=== PATIENT | female | born 1950 | race Caucasian/White ===

== ENCOUNTER → 2025-04-26 17:34 | Outpatient (REF) | payer MEDICARE, OTHER, SELFPAY | LOC: MRI 3T 17:34 | PROVIDERS: ATTENDING PHYSICIAN Radiology Radiation Oncology; FAMILY PHYSICIAN Family Medicine | DX: C34.11 Malignant neoplasm of upper lobe, right bronchus or lung (principal) | CPT/HCPCS: 70553; A9575 ==

== ENCOUNTER → 2025-05-10 13:45 | Outpatient (REF) | payer MEDICARE, OTHER, SELFPAY ==
[2025-05-10 15:15] LABS: Hematocrit 34.6 % (37.0-47.0); Hemoglobin 11.2 g/dL (12.0-16.0); Mean Corp Hgb Conc. 32.4 g/dL (33.0-37.0); Mean Corpuscular Volume 90.3 fL (81.0-99.0); Nucleated Red Blood Cells % 0 %; Platelet Count 141 10^3/uL (130-400); Red Cell Dist. Width 13.2 % (11.5-14.5)
[2025-05-10 16:11] LABS: ALT (SGPT) 19 U/L (0-35); AST (SGOT) 21 U/L (14-36); Albumin 3.9 g/dl (3.5-5.0); Alkaline Phosphatase 67 U/L (38-126); Blood Urea Nitrogen 16 mg/dl (7-17); Calcium 8.8 mg/dl (8.4-10.2); Carbon Dioxide 27 mmol/L (22-30); Chloride 100 mmol/L (98-107); Glucose 100 mg/dl (70-99); Magnesium 1.8 mg/dl (1.6-2.3); Potassium 4.6 mmol/L (3.5-5.1); Sodium 133 mmol/L (135-145); Total Protein 6.4 g/dl (6.3-8.2); eGFR > 60.00
== END ==
LOC: REG 13:45
PROVIDERS: ATTENDING PHYSICIAN Internal Medicine Hematology & Oncology; FAMILY PHYSICIAN Family Medicine
DX: C34.91 Malignant neoplasm of unspecified part of right bronchus or lung (principal); I42.9 Cardiomyopathy, unspecified; R53.81 Other malaise
CPT/HCPCS: 36415; 80053; 83735; 85025

== ENCOUNTER → 2025-05-21 13:55 | Outpatient (REF) | payer MEDICARE, OTHER, SELFPAY ==
[2025-05-21 15:06] LABS: Hematocrit 31.5 % (37.0-47.0); Hemoglobin 10.3 g/dL (12.0-16.0); Mean Corp Hgb Conc. 32.7 g/dL (33.0-37.0); Mean Corpuscular Volume 90.5 fL (81.0-99.0); Platelet Count 601 10^3/uL (130-400); Red Cell Dist. Width 14.2 % (11.5-14.5)
[2025-05-21 15:24] LABS: ALT (SGPT) 13 U/L (0-35); AST (SGOT) 22 U/L (14-36); Albumin 3.7 g/dl (3.5-5.0); Alkaline Phosphatase 67 U/L (38-126); Blood Urea Nitrogen 11 mg/dl (7-17); Calcium 9.5 mg/dl (8.4-10.2); Carbon Dioxide 27 mmol/L (22-30); Chloride 104 mmol/L (98-107); Glucose 89 mg/dl (70-99); Magnesium 2.1 mg/dl (1.6-2.3); Potassium 4.7 mmol/L (3.5-5.1); Sodium 136 mmol/L (135-145); Total Protein 6.5 g/dl (6.3-8.2); eGFR > 60.00
[2025-05-21 15:48] LABS: Absolute Neutrophils -Man Diff 3.8 10^3/uL (1.4-6.5); Normal RBC Morphology Yes; Platelets Checked Yes
[2025-05-21 15:49] LABS: Total Cells Counted 100
== END ==
LOC: REG 13:55
PROVIDERS: ATTENDING PHYSICIAN Internal Medicine Hematology & Oncology; FAMILY PHYSICIAN Family Medicine
DX: C34.91 Malignant neoplasm of unspecified part of right bronchus or lung (principal); I42.9 Cardiomyopathy, unspecified; R53.81 Other malaise
CPT/HCPCS: 36415; 80053; 83735; 85025

== ENCOUNTER → 2025-06-03 17:36 | Outpatient (REF) | payer MEDICARE, OTHER, SELFPAY ==
[2025-06-03 18:19] LABS: ALT (SGPT) 15 U/L (0-35); AST (SGOT) 21 U/L (14-36); Albumin 4.0 g/dl (3.5-5.0); Alkaline Phosphatase 69 U/L (38-126); Blood Urea Nitrogen 17 mg/dl (7-17); Calcium 9.0 mg/dl (8.4-10.2); Carbon Dioxide 29 mmol/L (22-30); Chloride 92 mmol/L (98-107); Glucose 120 mg/dl (70-99); Potassium 3.1 mmol/L (3.5-5.1); Sodium 129 mmol/L (135-145); Total Protein 6.6 g/dl (6.3-8.2); eGFR 52.40
[2025-06-03 18:58] LABS: Hematocrit 26.2 % (37.0-47.0); Hemoglobin 9.2 g/dL (12.0-16.0); Mean Corp Hgb Conc. 35.1 g/dL (33.0-37.0); Mean Corpuscular Volume 86.5 fL (81.0-99.0); Nucleated Red Blood Cells % 0 %; Red Cell Dist. Width 12.9 % (11.5-14.5)
[2025-06-03 20:12] LABS: Platelet Count 51 10^3/uL (130-400)
== END ==
LOC: REG 17:36
PROVIDERS: ATTENDING PHYSICIAN Internal Medicine Hematology & Oncology
DX: C34.91 Malignant neoplasm of unspecified part of right bronchus or lung (principal); I42.9 Cardiomyopathy, unspecified; R53.81 Other malaise
CPT/HCPCS: 36415; 80053; 85025

== ENCOUNTER → 2025-06-17 15:23 | Outpatient (REF) | payer MEDICARE, OTHER, SELFPAY ==
[2025-06-17 16:08] LABS: Hematocrit 26.8 % (37.0-47.0); Hemoglobin 8.7 g/dL (12.0-16.0); Mean Corp Hgb Conc. 32.5 g/dL (33.0-37.0); Mean Corpuscular Volume 92.4 fL (81.0-99.0); Nucleated Red Blood Cells % 0 %; Platelet Count 247 10^3/uL (130-400); Red Cell Dist. Width 17.0 % (11.5-14.5)
[2025-06-17 16:32] LABS: ALT (SGPT) 22 U/L (0-35); AST (SGOT) 28 U/L (14-36); Albumin 3.6 g/dl (3.5-5.0); Alkaline Phosphatase 79 U/L (38-126); Blood Urea Nitrogen 8 mg/dl (7-17); Calcium 8.9 mg/dl (8.4-10.2); Carbon Dioxide 30 mmol/L (22-30); Chloride 103 mmol/L (98-107); Glucose 105 mg/dl (70-99); Magnesium 1.5 mg/dl (1.6-2.3); Potassium 3.4 mmol/L (3.5-5.1); Sodium 138 mmol/L (135-145); Total Protein 6.2 g/dl (6.3-8.2); eGFR > 60.00
== END ==
LOC: REG 15:23
PROVIDERS: ATTENDING PHYSICIAN Internal Medicine Hematology & Oncology; REFERRING PHYSICIAN Radiology Radiation Oncology
DX: C34.91 Malignant neoplasm of unspecified part of right bronchus or lung (principal); I42.9 Cardiomyopathy, unspecified; R53.81 Other malaise; C34.11 Malignant neoplasm of upper lobe, right bronchus or lung
CPT/HCPCS: 36415; 80053; 83735; 85025

== ENCOUNTER → 2025-08-13 07:47 | Outpatient (REF) | payer MEDICARE, OTHER, SELFPAY | LOC: MRI 07:47 | PROVIDERS: ATTENDING PHYSICIAN Radiology Radiation Oncology; FAMILY PHYSICIAN Family Medicine | DX: C34.11 Malignant neoplasm of upper lobe, right bronchus or lung (principal) | CPT/HCPCS: 70553; A9575 ==

== ENCOUNTER 2025-08-28 12:53 | Outpatient (RCR) | payer MEDICARE, OTHER, SELFPAY ==
[2025-08-28 13:28] LABS: Hematocrit 28.2 % (37.0-47.0); Hemoglobin 9.1 g/dL (12.0-16.0); Mean Corp Hgb Conc. 32.3 g/dL (33.0-37.0); Mean Corpuscular Volume 99.3 fL (81.0-99.0); Platelet Count 200 10^3/uL (130-400); Red Cell Dist. Width 15.3 % (11.5-14.5)
[2025-08-28 15:35] LABS: ALT (SGPT) 14 U/L (0-35); AST (SGOT) 21 U/L (14-36); Albumin 3.2 g/dl (3.5-5.0); Alkaline Phosphatase 85 U/L (38-126); Blood Urea Nitrogen 11 mg/dl (7-17); Calcium 8.6 mg/dl (8.4-10.2); Carbon Dioxide 27 mmol/L (22-30); Chloride 104 mmol/L (98-107); Glucose 103 mg/dl (70-99); Potassium 4.3 mmol/L (3.5-5.1); Sodium 136 mmol/L (135-145); Total Protein 5.9 g/dl (6.3-8.2); eGFR > 60.00
== END 2025-08-28 23:59 | disposition home or self-care (01) ==
LOC: OID 12:53
PROVIDERS: ATTENDING PHYSICIAN Internal Medicine Hematology & Oncology; FAMILY PHYSICIAN Family Medicine
DX: G93.40 Encephalopathy, unspecified (principal); C34.11 Malignant neoplasm of upper lobe, right bronchus or lung; I42.9 Cardiomyopathy, unspecified; R53.81 Other malaise
CPT/HCPCS: 36415; 80053; 84443; 85025

== ENCOUNTER → 2025-09-02 13:25 | Outpatient (REF) | payer MEDICARE, OTHER, SELFPAY | LOC: RAD 13:25 | PROVIDERS: ATTENDING PHYSICIAN Nurse Practitioner Adult Health; FAMILY PHYSICIAN Family Medicine | DX: C34.11 Malignant neoplasm of upper lobe, right bronchus or lung (principal); I42.9 Cardiomyopathy, unspecified; R53.81 Other malaise | CPT/HCPCS: 71046 ==

== ENCOUNTER 2025-09-03 18:17 | Inpatient (IN) | payer MEDICARE, OTHER, SELFPAY ==
[2025-09-03] VITALS (10 sets, daily range): BP systolic 104–142; BP diastolic 62–86; BMI 24.3; BMI 25.2
--- NOTE | 2025-09-03 13:24 | ED.GENMED ---
History of Present Illness
<Roge Bearden MD - Last Filed: 09/03/25 13:25>
General
Chief Complaint: Breathing Problem
Time Seen by Provider: 09/03/25 12:55
History of Present Illness
History of Present Illness:
Patient presents to the emergency department with shortness of breath and cough. Symptoms have been worsening over the past few days. She notes to productive cough with green thick mucus. No fevers or chills. Today she was more short of breath
and her son brought her to the emergency department. She denies any chest pain. Denies any leg swelling.
Phy Exam
<Roge Bearden MD - Last Filed: 09/03/25 13:25>
Physical Exam
Physical Exam:
GENERAL APPEARANCE: In mild respiratory distress, pale appearing
EYES lids/conjunctiva normal
EARS/NOSE/THROAT Mucous membranes moist
HEAD/NECK normocephalic atraumatic, neck is supple.
RESPIRATORY frequent coughing, rhonchi on the right, mild tachypnea noted
CARDIAC tachycardia
ABDOMINAL Soft, ND/NT. No pulsatile masses on exam, rebound tenderness, Morlaes sign or pain over Mcburney's point.
MUSCLES/EXTREMITIES No abnormal range of motion, no swelling.
SKIN Warm, pink and dry. No rashes
NEUROLOGICAL Speech is clear and appropriate. Normal level of consciousness. 5/5 strength in all extremities.
PSYCH Normal mood and affect. Judgement/competence is appropriate
Scores
<Benoit Cool DO - Last Filed: 09/03/25 16:59>
Heart Failure Risk
Heart Failure Risk Score: Not Applicable
Sepsis
<Roge Bearden MD - Last Filed: 09/03/25 13:25>
Sepsis Screen
Sepsis Screen: Possible Sepsis
Date: 09/03/25
Time: 13:24
<Benoit Cool DO - Last Filed: 09/03/25 16:59>
Sepsis Screening
Sepsis Assessment: Sepsis Ruled Out
Sepsis Screen
Sepsis Screen: Sepsis Ruled Out
Date: 09/03/25
Time: 16:59
Course
<Roge Bearden MD - Last Filed: 09/03/25 13:25>
Orders/Labs/Results
Orders:
Orders
09/03/25 13:20
Electrocardiogram (*1) Urgent
Reason for Study: Shortness of Breath
CR Chest - 2 Views Urgent
Comment:
Reason For Exam: sob
09/03/25 13:21
EKG- Treatment ONCE
IV Insert/Care/Rem.- Treatment PRN
09/03/25 13:23
Basic Metabolic Panel Urgent
Complete Blood Count/With Diff Urgent
Lactic Acid Q4H
Comment: ON ICE, CANCEL 2ND ORDER IF FIRST LACTIC ACID LEVEL <2
Blood Culture Q20M
ROXANE Source: Blood/Venous
Specimen Description:
Comment: Urgent from separate sites. If patient screens positive for possible sepsis
Blood Culture Q20M
ROXANE Source: Blood/Venous
Specimen Description:
Comment: Urgent from separate sites. If patient screens positive for possible sepsis
09/03/25 13:27
COVID-19 Antigen Urgent
Source: Nasal Swab
D-Dimer Urgent
NT-proBNP Urgent
PTT Urgent
Prothrombin Time Urgent
Troponin I Urgent
Influenza A+B Rapid Molecular Urgent
ROXANE Source: Nasal Swab
Specimen Description:
09/03/25 13:52
CT Chest PE Study Urgent
Comment:
Reason For Exam: sob
09/03/25 16:15
Urinalysis Reflex To Culture Urgent
Date Specimen was Collected: 09/03/25
Time Specimen was Collected: 13:21
Urine Microscopic Reflex Cult Urgent
Urine Culture Urgent
ROXANE Source: U
Specimen Description:
Date Specimen was Collected: 09/03/25
Time Specimen was Collected: 13:21
09/03/25 16:56
Piperacillin/Tazo 3.375 Gram [Zosyn] 3.375 gram in 50 ml IV NOW
Vancomycin [Vancocin] 2,000 mg 0.9% Sodium Chloride 500 ml [Nss] 500 ml IV NOW
Abnormal Lab Results
09/03/25 09/03/25 09/03/25
13:23 13:27 16:15
RBC 3.30 L 10^6/uL
(4.20-5.40)
Hgb 10.5 L g/dL
(12.0-16.0)
Hct 32.1 L %
(37.0-47.0)
MCH 31.8 H pg
(27.0-31.0)
MCHC 32.7 L g/dL
(33.0-37.0)
RDW 14.6 H %
(11.5-14.5)
Abs Immat Gran (auto) 0.1 H 10^3/uL
(0-0.05)
Absolute Neuts (auto) 9.2 H 10^3/uL
(1.4-6.5)
Absolute Lymphs (auto) 0.5 L 10^3/uL
(1.2-3.4)
Absolute Monos (auto) 0.8 H 10^3/uL
(0.1-0.6)
Neutrophils % 86.3 H %
(42.2-75.2)
Lymphocytes % 4.3 L %
(20.5-51.1)
D-Dimer 1.87 H ug/mlFEU
(0.00-0.50)
Sodium 132 L mmol/L
(135-145)
Glucose 119 H mg/dl
(70-99)
Urine Urobilinogen 2+ A
(Neg - 1+)
Urine Bacteria (Reflex) Moderate A
(Negative)
Urine Albumin (Reflex) 2+ A
(Neg - Trace)
09/03/25 13:23
09/03/25 13:23
Vital Signs
Initial and Last Documented VS:
Initial Vital Signs
Temp Pulse Resp BP Pulse Ox
98.2 F 120 26 136/73 98
09/03/25 12:45 09/03/25 12:45 09/03/25 12:45 09/03/25 12:45 09/03/25 12:45
Last Documented Vital Signs
Temp Pulse Resp BP Pulse Ox
98.2 F 102 26 110/69 99
09/03/25 12:45 09/03/25 16:24 09/03/25 16:24 09/03/25 16:24 09/03/25 16:24
<Benoit Cool, DO - Last Filed: 09/03/25 16:59>
Orders/Labs/Results
Orders:
Orders
09/03/25 13:20
Electrocardiogram (*1) Urgent
Reason for Study: Shortness of Breath
CR Chest - 2 Views Urgent
Comment:
Reason For Exam: sob
09/03/25 13:21
EKG- Treatment ONCE
IV Insert/Care/Rem.- Treatment PRN
09/03/25 13:23
Basic Metabolic Panel Urgent
Complete Blood Count/With Diff Urgent
Lactic Acid Q4H
Comment: ON ICE, CANCEL 2ND ORDER IF FIRST LACTIC ACID LEVEL <2
Blood Culture Q20M
ROXANE Source: Blood/Venous
Specimen Description:
Comment: Urgent from separate sites. If patient screens positive for possible sepsis
Blood Culture Q20M
ROXANE Source: Blood/Venous
Specimen Description:
Comment: Urgent from separate sites. If patient screens positive for possible sepsis
09/03/25 13:27
COVID-19 Antigen Urgent
Source: Nasal Swab
D-Dimer Urgent
NT-proBNP Urgent
PTT Urgent
Prothrombin Time Urgent
Troponin I Urgent
Influenza A+B Rapid Molecular Urgent
ROXANE Source: Nasal Swab
Specimen Description:
09/03/25 13:52
CT Chest PE Study Urgent
Comment:
Reason For Exam: sob
09/03/25 16:15
Urinalysis Reflex To Culture Urgent
Date Specimen was Collected: 09/03/25
Time Specimen was Collected: 13:21
Urine Microscopic Reflex Cult Urgent
Urine Culture Urgent
ROXANE Source: U
Specimen Description:
Date Specimen was Collected: 09/03/25
Time Specimen was Collected: 13:21
09/03/25 16:56
Piperacillin/Tazo 3.375 Gram [Zosyn] 3.375 gram in 50 ml IV NOW
Vancomycin [Vancocin] 2,000 mg 0.9% Sodium Chloride 500 ml [Nss] 500 ml IV NOW
Abnormal Lab Results
09/03/25 09/03/25 09/03/25
13:23 13:27 16:15
RBC 3.30 L 10^6/uL
(4.20-5.40)
Hgb 10.5 L g/dL
(12.0-16.0)
Hct 32.1 L %
(37.0-47.0)
MCH 31.8 H pg
(27.0-31.0)
MCHC 32.7 L g/dL
(33.0-37.0)
RDW 14.6 H %
(11.5-14.5)
Abs Immat Gran (auto) 0.1 H 10^3/uL
(0-0.05)
Absolute Neuts (auto) 9.2 H 10^3/uL
(1.4-6.5)
Absolute Lymphs (auto) 0.5 L 10^3/uL
(1.2-3.4)
Absolute Monos (auto) 0.8 H 10^3/uL
(0.1-0.6)
Neutrophils % 86.3 H %
(42.2-75.2)
Lymphocytes % 4.3 L %
(20.5-51.1)
D-Dimer 1.87 H ug/mlFEU
(0.00-0.50)
Sodium 132 L mmol/L
(135-145)
Glucose 119 H mg/dl
(70-99)
Urine Urobilinogen 2+ A
(Neg - 1+)
Urine Bacteria (Reflex) Moderate A
(Negative)
Urine Albumin (Reflex) 2+ A
(Neg - Trace)
09/03/25 13:23
09/03/25 13:23
Vital Signs
Initial and Last Documented VS:
Initial Vital Signs
Temp Pulse Resp BP Pulse Ox
98.2 F 120 26 136/73 98
09/03/25 12:45 09/03/25 12:45 09/03/25 12:45 09/03/25 12:45 09/03/25 12:45
Last Documented Vital Signs
Temp Pulse Resp BP Pulse Ox
98.2 F 102 26 110/69 99
09/03/25 12:45 09/03/25 16:24 09/03/25 16:24 09/03/25 16:24 09/03/25 16:24
<Roge Bearden MD - Last Filed: 09/03/25 13:25>
*Pulse Oximetry
SaO2: 98
Oxygen Mode of Delivery: Room air
<Benoit Cool DO - Last Filed: 09/03/25 16:59>
*Pulse Oximetry
Patient hypoxic: yes
*Critical Care Note
Total Time (30-74mins, 75-104mins- exclusive of procedures): Not Applicable
<Benoit Cool DO - Last Filed: 09/03/25 16:59>
Update Note
Update Note:
5 PM care of patient was transitioned earlier pending CT pulmonary embolism rule out. CT negative for PE but does show evidence of multifocal pneumonia. Given the supplemental oxygen with her comorbidities, will start IV antibiotics and admit
ED Attending Note
<Roge Bearden MD - Last Filed: 09/03/25 13:25>
-
Portions of this chart may have been created with voice recognition software.� Occasional wrong word or��sound alike� substitutions may have occurred due to the inherent limitations of voice recognition software.
Discharge Plan
Departure
Patient Disposition: Admit
Date of Disposition: 09/03/25
Time of Disposition: 16:58
Admit to: Med/Surg
Presentation/result/management discussed w/ accepting MD/DO: Hospitalist
Discharge Problem:
Multifocal pneumonia
Referrals:
Tato Mera MD [Family Provider, Family Practice]
Interventions
Interventions:
*Risk Screen - Suicide Last Done: 09/03/25 12:45
*Neglect/Abuse Screening Last Done: 09/03/25 12:45
*ED COVID-19 Vaccine History Last Done: 09/03/25 12:45
*ED Influenza Vaccine History Last Done: 09/03/25 12:45
ED- Cardiac Assessment Last Done: 09/03/25 13:11
ED- Pulmonary Assessment Last Done: 09/03/25 13:11
Discharge Date and Time
Print Language: SLOVENIAN
[2025-09-03 13:35] LABS: Hematocrit 32.1 % (37.0-47.0); Hemoglobin 10.5 g/dL (12.0-16.0); Mean Corp Hgb Conc. 32.7 g/dL (33.0-37.0); Mean Corpuscular Volume 97.3 fL (81.0-99.0); Nucleated Red Blood Cells % 0 %; Platelet Count 305 10^3/uL (130-400); Red Cell Dist. Width 14.6 % (11.5-14.5)
[2025-09-03 13:44] LABS: INR 1.06; PT 14.1 Sec (11.4-14.6)
[2025-09-03 13:45] LABS: APTT 31.8 Sec (23.4-35.0)
[2025-09-03 13:48] LABS: D-Dimer 1.87 ug/mlFEU (0.00-0.50)
[2025-09-03 13:57] LABS: COVID-19 Antigen Negative (Negative)
[2025-09-03 14:58] LABS: Blood Urea Nitrogen 15 mg/dl (7-17); Calcium 9.2 mg/dl (8.4-10.2); Carbon Dioxide 25 mmol/L (22-30); Chloride 99 mmol/L (98-107); Estimated Creatinine Clearance 66 ml/min; Glucose 119 mg/dl (70-99); Sodium 132 mmol/L (135-145); eGFR > 60.00
[2025-09-03 15:00] LABS: Troponin I 0.022 ng/ml
[2025-09-03 16:45] LABS: Urine Character Clear (Clear)
[2025-09-03 16:54] LABS: Urine Red Blood Cell 0-2 /HPF (0-2); Urine White Cell 0-2 /HPF (0-5)
--- NOTE | 2025-09-03 16:59 | HPS.HSE ---
Family Physician
-
Family Physician: Tato Mera
Chief Complaint
-
increased shortness of breath
History of Present Illness
Patient is a 75-year-old female with past medical history significant for lung cancer, hypertension, hyperlipidemia, CHF, left bundle branch block, COPD, GERD and arthritis who presented to [facility] ED for evaluation of increased shortness of breath.
Patient and son at bedside assisted with HPI. Patient with increased shortness of breath and cough noticed starting approximately 4 days ago on Tuesday. Cough has been productive. Denies fever, chills, chest pain, nausea, vomting, diarrhea or
constipation.
Medical History
Past Medical History
Past Medical History: Reports Other
Additional Past Medical History:
lung cancer
hypertension
hyperlipidemia
CHF
hypothyroidism
left bundle branch block
COPD
GERD
arthritis
Past Surgical History: Reports Other
Additional Past Surgical History:
Hysterectomy
Whipple procedure
RCW port placement
Social History
Tobacco: Former Smoker
Alcohol: Occasional
Drug: None
Living: With Family
Family History
Family History: Not pertinent
Allergies / Home Medications
Allergies reflects when Allergies were last updated in [facility].
Home Medications with original date entered in [facility]
Allergy/Medication List:
Allergies
Allergy/AdvReac Type Severity Reaction Status Date / Time
atorvastatin (From Lipitor) Allergy Unknown Verified 09/03/25 17:24
erythromycin base Allergy Unknown Verified 09/03/25 17:24
ibandronate sodium (From Allergy Unknown Verified 09/03/25 17:24
Boniva)
metoclopramide (From Reglan) Allergy Rash Verified 09/03/25 17:24
gabapentin AdvReac weakness Verified 09/03/25 17:24
Home Medications
aspirin 81 mg tablet 81 mg PO DAILY 09/03/25
calcium 500 mg tablet 1,000 mg PO DAILY 09/03/25
calcium 650 mg-vitamin D3 12.5 mcg-vitamin K 40 mcg chewable tablet (Viactiv) 1 tab PO DAILY 09/03/25
carvedilol 6.25 mg tablet 6.25 mg PO BID 09/03/25
cholecalciferol (vitamin D3) 50 mcg (2,000 unit) capsule (Vitamin D3) 100 mcg PO DAILY 09/03/25
conjugated estrogens 0.3 mg tablet (Premarin) 0.3 mg PO DAILY 09/03/25
esomeprazole magnesium 40 mg capsule,delayed release (Nexium) 40 mg PO BID 09/03/25
famotidine 40 mg tablet 40 mg PO HS 09/03/25
fexofenadine 180 mg tablet 180 mg PO HS 09/03/25
furosemide 20 mg tablet 20 mg PO DIRECTED 09/03/25
levothyroxine 75 mcg tablet 75 mcg PO DAILY 09/03/25
lisinopril 5 mg tablet 5 mg PO DAILY 09/03/25
lorazepam 0.5 mg tablet 0.5 mg PO HS 09/03/25
montelukast 10 mg tablet 10 mg PO HS 09/03/25
multivitamin 2 tab PO DAILY 09/03/25
paroxetine HCl 25 mg tablet,extended release 24 hr (Paxil CR) 25 mg PO DAILY 09/03/25
rosuvastatin 20 mg tablet (Crestor) 20 mg PO HS 09/03/25
spironolactone 25 mg tablet 12.5 mg PO DAILY 09/03/25
zinc 1 tab PO HS 09/03/25
Review of Systems
-
History Source: Patient and Family
Constitutional: Denies Fever or Chills
EENT: Denies Sore Throat
Respiratory: Reports Cough and Trouble Breathing (shortness of breath); Denies Hemoptysis
Cardiac: Denies Chest Pain, Diaphoresis, Palpitations or Syncope
Abdomen/GI: Denies Abdominal Pain, Nausea, Vomiting or Diarrhea
: Denies Dysuria, Frequency or Urgency
Musculoskeletal: Denies Joint Pain
Skin: Denies Rash
Neurological: Denies Dizzy, Headache, Weakness or Numbness
Physical Exam
Vital Signs
Vital Signs
Temp Pulse Resp BP Pulse Ox
98.2 F 102 26 110/69 99
09/03/25 12:45 09/03/25 16:24 09/03/25 16:24 09/03/25 16:24 09/03/25 16:24
Physical Exam
General: Well Developed, Well Nourished and Conversant
HEENT: NormoCephalic, PERRLA, Nose Appears Normal and Ears Appear Normal
Respiratory: Rhonchi, Crackles, Decreased Breath Sounds and Other (oxygen in place ); No Wheezes or Rales
Cardiac: Regular Rhythm; No Murmur or Peripheral Edema
GI: Soft, Non Tender, Non Distended and Normal Bowel Sounds
Musculoskeletal: No Clubbing, No Cyanosis and Other (RCW port)
Skin: Warm and IV/Catheter Site
Neuro: Awake and AO x 3
Psych: Calm
Laboratory Results
-
09/03/25 13:23
09/03/25 13:23
Laboratory Results
PT 14.1 Sec (11.4-14.6) 09/03/25 13:27
INR 1.06 09/03/25 13:27
APTT 31.8 Sec (23.4-35.0) 09/03/25 13:27
Lactic Acid Cancelled 09/03/25 17:30
Total Bilirubin Cancelled 09/03/25 13:23
AST Cancelled 09/03/25 13:23
ALT Cancelled 09/03/25 13:23
Alkaline Phosphatase Cancelled 09/03/25 13:23
Troponin I 0.022 ng/ml 09/03/25 13:27
Data Reviewed
-
Diagnostic Radiology: Report Reviewed by me (CXR: Mild bibasilar linear opacities. Please see separate concurrent CTA Chest report.)
CT Scan: Report Reviewed by me (Chest: o CT evidence for an acute pulmonary thromboembolism. Bilateral patchy pulmonary parenchymal opacities, some with a nodular configuration. Pulmonary nodules detailed above. Other opacities appear less nodular,
greatest in the left lower lobe. Multifocal pneumonia is the primary consideration)
Medical Tests (Nuc Med, Echo, EKG etc): Report Reviewed by me (EKG: SINUS TACHYCARDIA LEFT BUNDLE BRANCH BLOCK)
Lab Data: Labs Reviewed by me (hgb 10.5, hct 32.1, neut 86.3, d-dimer 1.87, Na 132, pBNP 6370)
Impression/Plan
-
IMPRESSION/PLAN:
#dyspnea and orthopnea 2/2 PNA vs. lung cancer vs. CHF
hgb 10.5, hct 32.1, neut 86.3, d-dimer 1.87, Na 132, pBNP 6370
Influenza: negative
Covid: negative
Procal: pending
EKG: SINUS TACHYCARDIA
LEFT BUNDLE BRANCH BLOCK
CXR: Mild bibasilar linear opacities. Please see separate concurrent CTA Chest report.
Chest CT: No CT evidence for an acute pulmonary thromboembolism.
Bilateral patchy pulmonary parenchymal opacities, some with a nodular configuration. Pulmonary nodules detailed above. Other opacities appear less nodular, greatest in the left lower lobe.
Multifocal pneumonia is the primary consideration, but underlying metastases would be difficult to exclude. Recommend follow-up imaging after treatment.
Mild linear scarring in the anterior inferior right upper lobe at the site of the patient's treated lung cancer.
Mild bilateral bronchitis.
Mild centrilobular emphysema.
- Admit to med/surg
- Consult Pulmonary
- IV Zosyn q6
- IV Decadron 4mg q12h
- DuoNeb qid and PRN
- Sputum culture
- supportive care
#CHF
- Consult Cardiology
- check ECHO
- daily weights
- I & Os
- hold PO Lasix
- continue spironolactone
- IV Lasix 20mg daily
#lung cancer
known to [facility]
completed chemo and radiation May 2025
- follow up out patient
#hypertension
- continue carvedilol and lisinopril
#hyperlipidemia
- continue rosuvastatin
#hypothyroidism
- continue levothyroxine
#COPD
- continue fexofenadine and montelukast
#GERD
- continue famotidine
#depression/anxiety
- continue paroxetine and lorazepam
#arthritis
Code status: DNR
DVT prophylaxis: Lovenox sq
--- NOTE | 2025-09-03 17:04 | W.PN.UPDATE ---
Addendum entered and electronically signed by Too Daley MD 09/03/25 17:44:
ADDENDUM:
NEG Covid. NEG Flu A & B
IV Decadron 4mg q12h
DuoNeb qid and PRN
Sputum CX
Original Note:
Update Note
Progress Note Update
This note serves as an addendum to the H&P by [employer] Nataly Oneal
HPI�
75F BiB Son
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
seen at ER
- BiB son due to worsening SoB
- pw shortness of breath and cough worsening over the past few days
+ productive cough with green thick mucus.
- No fevers or chills.
- denies any chest pain.
- denies any leg swelling.
VS: POX hi 90s on RA. No fever
Relevant VS
Temp Pulse Resp BP Pulse Ox
98.2 F 102 26 110/69 99
09/03/25 12:45 09/03/25 16:24 09/03/25 16:24 09/03/25 16:24 09/03/25 16:24
PE
Gen: looks sick, alert
HEENT: wearing NC O2
Neck:supple
Lungs: poor AE both marlow , rhonchi,but no exp wheeze
Cor: RRR
Abdomen:�soft benign
[employer]:alert , slow cognitive speed but correct answer
MS:no edema
Psych: anxious
Relevant Data�
09/03/25 09/03/25
13:23 13:27
WBC 10.7
Hgb 10.5 L
Plt Count 305 D
D-Dimer 1.87 H
Sodium 132 L
Creatinine 0.7
eGFR > 60.00
Lactic Acid 1.3
09/03/25
13:27
Troponin I 0.022
[id number]-Iqjiecpppll Pept 6370
CXR:
Mild bibasilar linear opacities. Please see separate concurrent CTA Chest report.
CTC PE protocol
- No CT evidence for an acute pulmonary thromboembolism.
- Bilateral patchy pulmonary parenchymal opacities, some with a nodular configuration.
- Pulmonary nodules detailed above. Other opacities appear less nodular, greatest in the left lower lobe.
- Multifocal pneumonia is the primary consideration, but underlying metastases would be difficult to exclude. Recommend follow-up imaging after treatment.
- Mild linear scarring in the anterior inferior right upper lobe at the site of the patient's treated lung cancer.
- Mild bilateral bronchitis.
- Mild centrilobular emphysema.
NO PRIOR hospitalist admission: Known to [facility]
ASSESSMENT & PLAN
Pending Rx reconciliation - on [facility]
Ramey and orthopnea- No Moris edema
Productive cough with green sputum ( afebrile , Nl WCC) : acute bronchitis COPD, Former smoker , not on home O2
Elevated p BNP ( 6370) with nl eGFR: suspect acute on chr CHF type unknown
Abnormal multinodal parenchymal opacities CTC : DDX: multifocal PNA, Mets. No evidence of PE
- check PCT till then c/w empiric IX Zosyn
- check MRSA screen
- Empiric IV lasix 20 mg now IV 20mg daily x daily
- O2 support to keep POx > 93 %
- ECHO in AM
- daily Wt and IOS
- Consult: Pul & CBC card
Small cell Lung CA ( s/p chemo and XRT )
- Known to Dr Hidalgo @ [facility]
pHTN
DVT Px: LMWH
DNR per advanced directives - confirmed by Son
IP TLM
[2025-09-03] MEDS: ZOSYN 50 IV ×2 (17:42→23:41)
[2025-09-03] MEDS: LASIX 20 MG IV (18:11)
[2025-09-03] MEDS: VANCOCIN 540 MG IV (18:12)
[2025-09-03 18:19] LABS: Procalcitonin 0.31 ng/ml (0.0-0.25)
[2025-09-03] MEDS: DUONEB 3 ML INH (20:35)
[2025-09-03] MEDS: CLARITIN 10 MG PO (21:31)
[2025-09-03] MEDS: COREG 6.25 MG PO (21:31)
[2025-09-03] MEDS: DECADRON 4 MG IV (21:31)
[2025-09-03] MEDS: SINGULAIR 10 MG PO (21:31)
[2025-09-03] MEDS: PROTONIX 40 MG PO (21:31)
[2025-09-03] MEDS: CRESTOR 20 MG PO (21:31)
[2025-09-03] MEDS: PEPCID 40 MG PO (21:31)
[2025-09-03] MEDS: ATIVAN 0.5 MG PO (21:31)
[2025-09-04] VITALS (7 sets, daily range): BP systolic 97–109; BP diastolic 42–63; BMI 25.2
[2025-09-04] MEDS: TYLENOL 650 MG PO (00:13)
[2025-09-04] MEDS: ZOSYN 50 IV ×2 (05:01→12:58)
[2025-09-04] MEDS: SYNTHROID PO (06:09)
--- NOTE | 2025-09-04 06:18 | PTCARENOTE ---
Pt seeming to be more drowsy throughout shift, sweaty and clammy. Temp 97.9, 116/58, HR 83, O2 97 on 2 L. Pt opens eyes per verbal and tactile stimuli then closes immed and goes back to sleep. Unable to take 0600 Synthroid at this time. AJAY Lockett
made aware.
[2025-09-04 06:57] LABS: Hematocrit 27.0 % (37.0-47.0); Hemoglobin 9.0 g/dL (12.0-16.0); Mean Corp Hgb Conc. 33.3 g/dL (33.0-37.0); Mean Corpuscular Volume 94.1 fL (81.0-99.0); Platelet Count 223 10^3/uL (130-400); Red Cell Dist. Width 14.4 % (11.5-14.5)
[2025-09-04 07:06] LABS: Blood Urea Nitrogen 15 mg/dl (7-17); Calcium 8.9 mg/dl (8.4-10.2); Carbon Dioxide 24 mmol/L (22-30); Chloride 101 mmol/L (98-107); Estimated Creatinine Clearance 56 ml/min; Glucose 155 mg/dl (70-99); HDL Cholesterol 53 mg/dl; Potassium 3.9 mmol/L (3.5-5.1); Sodium 132 mmol/L (135-145); Very Low Density Lipoprotein 12 mg/dl (0-30); eGFR > 60.00
--- NOTE | 2025-09-04 07:14 | W.PN.HOSP.TC ---
Today's Communication/Plan
-
zosyn switching to doxycycline 100 mg/ bid
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
PT, OT consult
pulmonary toileting
ativan prn
hold the antihypertensive if the systolic 100mg less
TSH ordered
Assessment / Plan
Assessment / Plan
75-year-old female with past history significant for lung cancer, hypertension, hyperlipidemia, congestive heart failure, left bundle branch block, chronic obstructive pulmonary disease, gastroesophageal reflux disease and arthritis presented with
increased shortness of breath. When she had which recommend with Management Concern for Increased Shortness of Breath, Cough from Tuesday which was productive,former smoker occasional drinker living with family presented with shortness of breath
secondary to pulmonary nodules/lung cancer/CHF:
Vitals: ID [id number], temp max 98.9, pulse rate 114---71, blood pressure 109/63, O2 sat 99 with 2 L nasal cannula.
WBC 6.4, hemoglobin 10.5--9 low,
Coagulation: D-dimer 1.87 high,
Chemistry: Sodium 132, glucose 119--155, lactic acid 1.3 normal, COVID-negative.
MRSA screening pending, urine culture pending.
# Dyspnea and orthopnea secondary to pulmonary nodules/lung cancer/CHF:
D-dimer 1.87 high, sodium 132 low, proBNP 6370,
COVID-negative, flu negative.
IV Zosyn 6 hourly stopped.
IV Decadron 4 mg 4 hourly started
Sputum culture, supportive care, I/O,
Consult sr vice president, scrap metal processing worker
IV Lasix 20 mg daily, continue spironolactone
Health per oral Lasix
Monitor daily weight
EKG 09/03: QT interval 545 ms sinus tachycardia, left bundle branch block
On 09/03/2025 chest x-ray finding:
Mild bibasilar linear opacities are again seen. The cardiomediastinal silhouettes are stable. Right chest port is seen with tip in the SVC. There is no pneumothorax, significant pleural effusion or mediastinal shift.
On 09/03/25 CT chest PE study:
No CT evidence for an acute pulmonary thromboembolism.
Bilateral patchy pulmonary parenchymal opacities, some with a nodular configuration. Pulmonary nodules detailed above. Other opacities appear less nodular, greatest in the left lower lobe. Multifocal pneumonia is the primary consideration, but
underlying metastases would be difficult to exclude. Recommend follow-up imaging after treatment.
Mild linear scarring in the anterior inferior right upper lobe at the site of the patient's treated lung cancer.
Mild bilateral bronchitis, Mild centrilobular emphysema.
# Lung cancer:
Completed her chemotherapy and radiation on May 2025 at [facility].
#hypertension
- continue carvedilol and lisinopril
#hyperlipidemia
- continue rosuvastatin
#hypothyroidism
- continue levothyroxine
#COPD
- continue fexofenadine and montelukast
#GERD
- continue famotidine
#depression/anxiety
- continue paroxetine and lorazepam
#arthritis
# PT, OT consult
plan:
Code status: DNR
DVT prophylaxis: Lovenox sq
Diet: Normal
Anticipated Discharge: 24 - 48 hours
Subjective/Interval History
-
Date of Service: September 04, 2025
Overnight the patient received Xanax and felt this sleepy with loud snoring, her son Mayank present at the time of discussion. And the patient feels better when comparing from the admission.
She denies fever, chills, dysuria, chest pain, palpitation, shortness of breath.
Objective Data
-
Labs:
Laboratory Results
09/04/25
05:35
WBC 6.4
Hgb 9.0 L
Hct 27.0 L
Plt Count 223 D
Sodium 132 L
Potassium 3.9
Chloride 101
Carbon Dioxide 24
BUN 15
Creatinine 0.8
Glucose 155 H
Calcium 8.9
Vital Signs:
Vital Signs
Temp Pulse Resp BP Pulse Ox
97.6 F 83 20 109/63 99
09/04/25 03:00 09/04/25 03:00 09/04/25 03:00 09/04/25 03:00 09/04/25 03:00
I&O
09/03/25 09/04/25 09/05/25
06:59 06:59 06:59
Output Total 375 / 375
Balance -375 / -375
Review of Systems
-
History Source: Patient
All other systems: Reviewed and negative
Physical Exam
-
HEENT: Oxygen (2 L) and Other
Respiratory: Crackles
Cardiac: Regular Rhythm and S1/S2
GI: Soft, Nontender and Nondistended
Genito-urinary: No Costovertebral Tender
Musculoskeletal: No Clubbing
Skin: Warm
Neuro: AO x 3, No Motor Deficits and Sedated
Hematologic / Lymphatic: No Lymphadenopathy
Psych: Calm
[2025-09-04 07:15] LABS: LDL Cholesterol, Calculated 62 mg/dl
[2025-09-04] MEDS: DUONEB 3 ML INH ×4 (07:23→19:47)
--- NOTE | 2025-09-04 09:05 | CON.CAR ---
Addendum entered and electronically signed by Rafi Jones MD 09/04/25 14:13:
I reviewed and agree with the note by AJAY and it accurately reflects our care.
I saw and evaluated the patient, and I provided the substantive portion of the medical decision making. My assessment and plan is below:
75-year-old female with HFrEF, LBBB, COPD, chronic bronchitis, and lung cancer on immunotherapy who presents with shortness of breath and productive cough. Cardiology is consulted due to concern for CHF exacerbation. History is limited due to
patient's lethargy. She denies any current chest pain or shortness of breath while she is lying in the bed.
Physical exam: RRR, systolic murmur, rhonchorous lung sounds, and no lower extremity edema
Chest CT: No PE, multifocal pneumonia, cannot exclude underlying metastases, mild bronchitis, mild emphysema, no pleural effusions
Labs notable for troponin 0.022, proBNP 6370, creatinine 0.8, Pro-Shakeel 0.31
ECG: Sinus tachycardia, LBBB
Echo July 2025 ([facility]): LVEF 20%, moderate MR, PASP 55 mmHg
Echo 09/04/2025: LVEF 15-20%, severe MR, PASP 42 mmHg
Shortness of breath: Likely multifactorial due to pneumonia, COPD exacerbation, and acute on chronic HFrEF. Difficult volume exam but PASP is lower than reported in July and we have several other explanations for her dyspnea. Home Lasix 20 mg
daily has been ordered by primary team. Okay to continue this dose. If dyspnea is not improving despite treatment for pneumonia and COPD exacerbation, we could consider putting her back on IV Lasix.
HFrEF: Diuresis as above. Continue lisinopril, and spironolactone. Carvedilol on hold for low BP. Resume as tolerated.
Cardiology will sign off. Please call with any additional questions or concerns.
Original Note:
Consultation
Consultation Request
Date/Time Consultation Requested: 09/03/252006
Date/Time Consultation Performed: 09/04/25906
Requesting Provider: Gladys [place] ADMINISTRATIVE PROGRAM SPECIALIST
Performing Provider: Marli MOSS for Dr. Jones
Reason for Consultation: CHF
Medical History
-
Chief Complaint: SOB
History of Present Illness:
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
night. There was also productive cough with green sputum. This got much worse yesterday and so son (at bedside) brought her in. She is seen on CT scan to have suspected PNA, bronchitis, and emphysema. Procal is elevated. She is diaphoretic to
assessment, but no fever. She is being treated with steroids and antibiotics. We are consulted for suspected component of CHF, as BNP is elevated. She has lost 22 lbs this year in setting of cancer treatment.
Past Medical History
Past Medical History: Cancer, CHF, COPD, HTN and Hypercholesterolemia
Social History
Living: With Family
Family History
Family History: Reviewed & Not Pertinent
Allergies / Home Medications
Allergy/AdvReac Type Severity Reaction Status Date / Time
atorvastatin (From Lipitor) Allergy Unknown Verified 09/03/25 17:24
erythromycin base Allergy Unknown Verified 09/03/25 17:24
ibandronate sodium (From Allergy Unknown Verified 09/03/25 17:24
Boniva)
metoclopramide (From Reglan) Allergy Rash Verified 09/03/25 17:24
gabapentin AdvReac weakness Verified 09/03/25 17:24
�Medication �Instructions �Recorded �Confirmed �Type
aspirin 81 mg tablet 81 mg PO DAILY Blood Pressure 09/03/25 09/03/25 History
calcium 500 mg tablet 1,000 mg PO DAILY Supplement 09/03/25 09/03/25 History
calcium 650 mg-vitamin D3 12.5 1 tab PO DAILY Supplement 09/03/25 09/03/25 History
mcg-vitamin K 40 mcg chewable
tablet (Viactiv)
carvedilol 6.25 mg tablet 6.25 mg PO BID Blood Pressure 09/03/25 09/03/25 History
cholecalciferol (vitamin D3) 50 100 mcg PO DAILY Supplement 09/03/25 09/03/25 History
mcg (2,000 unit) capsule (Vitamin
D3)
conjugated estrogens 0.3 mg tablet 0.3 mg PO DAILY HORMONE 09/03/25 09/03/25 History
(Premarin)
esomeprazole magnesium 40 mg 40 mg PO BID Gastrointestinal Issue 09/03/25 09/03/25 History
capsule,delayed release (Nexium)
famotidine 40 mg tablet 40 mg PO HS Gastrointestinal Issue 09/03/25 09/03/25 History
fexofenadine 180 mg tablet 180 mg PO HS Allergies 09/03/25 09/03/25 History
furosemide 20 mg tablet 20 mg PO DIRECTED Fluid 09/03/25 09/03/25 History
Retention/Swelling
levothyroxine 75 mcg tablet 75 mcg PO DAILY Thyroid 09/03/25 09/03/25 History
lisinopril 5 mg tablet 5 mg PO DAILY Blood Pressure 09/03/25 09/03/25 History
lorazepam 0.5 mg tablet 0.5 mg PO HS Mental Health/Anxiety 09/03/25 09/03/25 History
montelukast 10 mg tablet 10 mg PO HS Allergies 09/03/25 09/03/25 History
multivitamin 2 tab PO DAILY Supplement 09/03/25 09/03/25 History
paroxetine HCl 25 mg 25 mg PO DAILY Mental 09/03/25 09/03/25 History
tablet,extended release 24 hr Health/Anxiety
(Paxil CR)
rosuvastatin 20 mg tablet (Crestor) 20 mg PO HS High Cholesterol 09/03/25 09/03/25 History
spironolactone 25 mg tablet 12.5 mg PO DAILY Fluid 09/03/25 09/03/25 History
Retention/Swelling
zinc 1 tab PO HS Supplement 09/03/25 09/03/25 History
Review of Systems
-
History Source: Patient
All other systems: Negative unless noted
Constitutional: Weight Loss
Respiratory: Cough and Trouble Breathing
Physical Exam
Vital Signs
Temp Pulse Resp BP Pulse Ox
97.6 F 71 18 109/63 99
09/04/25 03:00 09/04/25 07:24 09/04/25 07:24 09/04/25 03:00 09/04/25 07:24
Lab Results
09/04/25 05:35
09/04/25 05:35
Troponin I 0.022 ng/ml 09/03/25 13:27
Nbv-R-Kjhdcnigrzu Pept 6370 pg/ml 09/03/25 13:27
Physical Exam
General: Well Developed, Well Nourished and No Apparent Distress
HEENT: Normocephalic and Anicteric
Respiratory: Other (coarse lung sounds t/o)
Cardiac: Regular Rhythm
Musculoskeletal: Edema (trace pedal)
Skin: Warm and Dry
Neuro: AO x 3
Psych: Calm
Impression / Plan
-
SOB:
-Chest CT 09/03/25: No CT evidence for an acute pulmonary thromboembolism. Bilateral patchy pulmonary parenchymal opacities, some with a nodular configuration. Pulmonary nodules detailed above. Other opacities appear less nodular, greatest in the
left lower lobe. Multifocal pneumonia is the primary consideration, but underlying metastases would be difficult to exclude. Recommend follow-up imaging after treatment. Mild linear scarring in the anterior inferior right upper lobe at the site of
the patient's treated lung cancer. Mild bilateral bronchitis. Mild centrilobular emphysema.
-pulmonary consulted
-on ABX, steroids, duonebs
-patient also with lung cancer as noted
-Elevated BNP and could have mild component of uvalq-rv-jtlxdgw HF (type unknown), but does not appear obviously volume overloaded to assessment, so I do not think will need to be on IV diuresis much longer- OP doing lasix 20 mg EOD for LE edema
per family. She is also on low dose spironolactone. Echo is ordered by primary team.
HTN:
-stable
-would continue usual home medications
LBBB:
-chronic and stable
Lung cancer:
-follows with oncology
Data Reviewed
-
EKG: Tracing Personally Visualized and interpreted (ST with LBBB 113 B[address]
CT Scan: Report Reviewed by me (as noted)
Medical Tests (Nuc Med, Echo etc): Other (echo ordered)
Labs: Labs Reviewed by me
[2025-09-04] MEDS: DECADRON 4 MG IV ×2 (09:21→20:56)
[2025-09-04] MEDS: PROTONIX 40 MG PO ×2 (09:22→20:56)
[2025-09-04] MEDS: PAXIL 20 MG PO (09:22)
[2025-09-04] MEDS: PREMARIN 0.3 MG PO (09:22)
[2025-09-04] MEDS: LOW STRENGTH ASPIRIN 81 MG PO (09:22)
[2025-09-04] MEDS: ALDACTONE 12.5 MG PO (09:26)
[2025-09-04] MEDS: LASIX 20 MG PO (09:26)
[2025-09-04] MEDS: ZESTRIL 5 MG PO (09:26)
[2025-09-04] MEDS: COREG 6.25 MG PO (09:26)
--- NOTE | 2025-09-04 09:29 | CON.PUL ---
Consultation
Consultation Request
Date/Time Consultation Requested: 09/03/25
Date/Time Consultation Performed: 09/03/25
Performing Provider: Jose
Reason for Consultation: SOB
Medical History
-
History of Present Illness:
Patient is a 75-year-old female with previous history of lung cancer, hypertension, CHF, COPD presenting to ER for evaluation of increased shortness of breath, cough started approximately 4 days prior to admission. Patient had chest x-ray
demonstrating mild bilateral patchy opacities, confirmed on CT imaging with associated interstitial prominence and mosaicism. proBNP elevated on admission 6370, with mildly elevated procalcitonin. She is admitted for possible pneumonia and
congestive heart failure exacerbation.
Past Medical History
Past Medical History: Other (see list below)
Social History
Tobacco: Non-smoker
Alcohol: None
Drug: None
Family History
Family History: Unable to Obtain
Allergies / Home Medications
Allergies
Allergy/AdvReac Type Severity Reaction Status Date / Time
atorvastatin (From Lipitor) Allergy Unknown Verified 09/03/25 17:24
erythromycin base Allergy Unknown Verified 09/03/25 17:24
ibandronate sodium (From Allergy Unknown Verified 09/03/25 17:24
Boniva)
metoclopramide (From Reglan) Allergy Rash Verified 09/03/25 17:24
gabapentin AdvReac weakness Verified 09/03/25 17:24
Home Medications
�Medication �Instructions �Recorded �Confirmed �Last Taken �Type
aspirin 81 mg tablet 81 mg PO DAILY Blood Pressure 09/03/25 09/03/25 09/02/25 History
calcium 500 mg tablet 1,000 mg PO DAILY Supplement 09/03/25 09/03/25 09/02/25 History
calcium 650 mg-vitamin D3 12.5 1 tab PO DAILY Supplement 09/03/25 09/03/25 09/02/25 History
mcg-vitamin K 40 mcg chewable
tablet (Viactiv)
carvedilol 6.25 mg tablet 6.25 mg PO BID Blood Pressure 09/03/25 09/03/25 09/02/25 History
cholecalciferol (vitamin D3) 50 100 mcg PO DAILY Supplement 09/03/25 09/03/25 09/02/25 History
mcg (2,000 unit) capsule (Vitamin
D3)
conjugated estrogens 0.3 mg tablet 0.3 mg PO DAILY HORMONE 09/03/25 09/03/25 09/02/25 History
(Premarin)
esomeprazole magnesium 40 mg 40 mg PO BID Gastrointestinal Issue 09/03/25 09/03/25 09/02/25 History
capsule,delayed release (Nexium)
famotidine 40 mg tablet 40 mg PO HS Gastrointestinal Issue 09/03/25 09/03/25 09/02/25 History
fexofenadine 180 mg tablet 180 mg PO HS Allergies 09/03/25 09/03/25 09/02/25 History
furosemide 20 mg tablet 20 mg PO DIRECTED Fluid 09/03/25 09/03/25 09/02/25 History
Retention/Swelling
levothyroxine 75 mcg tablet 75 mcg PO DAILY Thyroid 09/03/25 09/03/25 09/02/25 History
lisinopril 5 mg tablet 5 mg PO DAILY Blood Pressure 09/03/25 09/03/25 09/02/25 History
lorazepam 0.5 mg tablet 0.5 mg PO HS Mental Health/Anxiety 09/03/25 09/03/25 09/02/25 History
montelukast 10 mg tablet 10 mg PO HS Allergies 09/03/25 09/03/25 09/02/25 History
multivitamin 2 tab PO DAILY Supplement 09/03/25 09/03/25 09/02/25 History
paroxetine HCl 25 mg 25 mg PO DAILY Mental 09/03/25 09/03/25 09/02/25 History
tablet,extended release 24 hr Health/Anxiety
(Paxil CR)
rosuvastatin 20 mg tablet (Crestor) 20 mg PO HS High Cholesterol 09/03/25 09/03/25 09/02/25 History
spironolactone 25 mg tablet 12.5 mg PO DAILY Fluid 09/03/25 09/03/25 09/02/25 History
Retention/Swelling
zinc 1 tab PO HS Supplement 09/03/25 09/03/25 09/02/25 History
Review of Systems
-
Unable to Obtain full review of systems at this time due to: Acuity
Vitals / Labs / Diagnostic Testing
Vital Signs
Temp Pulse Resp BP Pulse Ox
97.0 F 71 18 109/63 99
09/04/25 09:07 09/04/25 07:24 09/04/25 07:24 09/04/25 03:00 09/04/25 07:24
Lab Data
09/04/25 05:35
09/04/25 05:35
Laboratory Results
09/03/25
13:27
PT 14.1
INR 1.06
APTT 31.8
Microbiology
09/03/25 13:27 Nasal Swab Influenza Types A & B (MELINDA) - Final
Negative for Influenza A & B, NAAT
Negative results must be combined with clinical observations
and patient history.
Nucleic Acid Amplification test (NAAT)performed on the
[employer] NOW platform.
Diagnostic Testing:
Physical Exam
-
HEENT: Normocephalic, Anicteric and Moist Mucous Membranes
Cardiovascular: S1/S2, Regular Rhythm and Peripheral Edema
Respiratory: Wheeze, Rales and Non-Labored Respirations
GI: Soft, Non Distended and Non Tender
Neurology: Other (lethargic minimally arousable)
Skin: Warm and Dry
General: Comfortable and Other (overweight, lethargic)
Assessment
-
Patient is a 75-year-old female with previous history of lung cancer, hypertension, CHF, COPD presenting to ER for evaluation of increased shortness of breath, cough started approximately 4 days prior to admission. Patient had chest x-ray
demonstrating mild bilateral patchy opacities, confirmed on CT imaging with associated interstitial prominence and mosaicism. proBNP elevated on admission 6370, with mildly elevated procalcitonin. She is admitted for possible pneumonia and
congestive heart failure exacerbation.
Heart failure exacerbation, elevated proBNP 6370
Rule out pneumonia, Pro-Shakeel mildly elevated
Progressive shortness of breath with cough
Abnormal CT scan-w/ opacities, interstitial prominence, mosaicism
Conditions present prior to admission
Lung cancer
hypertension
hyperlipidemia
CHF
hypothyroidism
left bundle branch block
COPD/emphysema
GERD
arthritis
Hysterectomy
Whipple procedure
RCW port placement
Plan
Currently saturating 99% on 2L, does not have history of use at home
Home O2 evaluation eventually
Prior history of lung disease is noted including lung cancer, COPD/emphysema
Records not at , she follows for care elsewhere -- obtain records
She is unable to report history given lethargy
Will obtain ABG, suspect ENMA, r/o hypercarbia
Suspect patient has CHF exacerbation, with possible PNA r/o
CXR/CT obtained indicating opacities, interstitial prominence, mosaicism
She is placed on IV steroids, abx and lasix
FU cultures
Speech eval to be considered
Aspiration risk
No prior ECHO for review, obtain new study
Cards eval pending
Will need outpatient pulmonary evaluation PFTs and 6MWT--unsure if she has established somewhere
We will follow
Diagnostic Data
Chest X-Ray: 09/03/25- Mild bibasilar linear opacities. Please see separate concurrent CTA Chest report.
CT Scan: CT Chest 09/03/25- No CT evidence for an acute pulmonary thromboembolism. Bilateral patchy pulmonary parenchymal opacities, some with a nodular configuration. Pulmonary nodules detailed above. Other opacities appear less nodular, greatest
in the left lower lobe. Multifocal pneumonia is the primary consideration, but underlying metastases would be difficult to exclude. Recommend follow-up imaging after treatment. Mild linear scarring in the anterior inferior right upper lobe at the
site of the patient's treated lung cancer. Mild bilateral bronchitis.
Mild centrilobular emphysema.
PET/CT 08/12/25- Near-complete interval resolution of previously seen neoplasm in the inferior aspect of the right upper lobe with residual minimally FDG avid small bandlike opacity in this region, likely representing post-treatment inflammatory
scarring. Recommend continued attention on follow-up exams.
Several scattered small patchy right lung opacities with minimal visualized FDG avidity (although likely below PET sensitivity), new from prior outside PET/CT 04/11/2025 and most likely represent infectious/inflammatory foci, less likely
residual/recurrent neoplasm but not entirely excluded. Recommend continued attention on follow-up exams, such as a noncontrast CT chest in 2-3 months.Echo:
PFT's:
Reports and relevant images were personally reviewed.
Total time spent on this consultation __55__ minutes which includes review of history, physical exam, medications, laboratory data, personal review of imaging, extensive review of outpatient records, discussion with care team and respiratory therapy.
--- NOTE | 2025-09-04 12:18 | CARDSERVDEF ---
Echocardiogram with Definity completed after protocol screening completed. Allergies verified.
Patent IV site: _Right arm median antecubital_site clear___
IV site flushed with 0.9% NaCl pre and post administration.
Diluted bolus method utilized to enhance visualization of ventricular holland.
Total volume given: __3__ mL
Patient tolerated all procedures well without complications.
[2025-09-04 14:55] LABS: B.E. -1.3 mmol/L; HCO3 21.8 mmol/L (21-28); O2 Saturation % 97.2 % (94-98); PCO2 30 mmHg (32-35); PO2 73 mmHg (83-108)
[2025-09-04] MEDS: LOVENOX 40 MG SC (17:43)
[2025-09-04] MEDS: SYMBICORT 80/4.5 MCG INHALER 2 PUFF INH (19:47)
--- NOTE | 2025-09-04 19:56 | RESPNOTE ---
Attempted to place patient on CPAP for the night. Patient refused.
[2025-09-04] MEDS: VIBRAMYCIN 100 MG PO (20:57)
[2025-09-04 21:02] LABS: TSH 0.22 uIU/ml (0.47-4.68)
[2025-09-04] MEDS: CLARITIN 10 MG PO (23:07)
[2025-09-04] MEDS: PEPCID 20 MG PO (23:07)
[2025-09-04] MEDS: SINGULAIR 10 MG PO (23:07)
[2025-09-04] MEDS: CRESTOR 20 MG PO (23:07)
[2025-09-05 03:00] VITALS: BP 116/59
[2025-09-05] MEDS: SYNTHROID 75 MCG PO (05:38)
[2025-09-05 06:00] VITALS: BMI 25.2
[2025-09-05 07:00] VITALS: BP 113/65
[2025-09-05] MEDS: DUONEB 3 ML INH ×2 (07:12→11:07)
[2025-09-05] MEDS: SYMBICORT 80/4.5 MCG INHALER 2 PUFF INH (07:13)
--- NOTE | 2025-09-05 07:15 | W.PN.HOSP.TC ---
Today's Communication/Plan
-
Outpatient follow-up with the PCP in regards to her TSH level 0.22 low, graphic arts technician within a week of discharge.
DOXYCYCLINE` 100 mg twice daily, cefdinir 300 mg twice daily CONTINUE FOR 5 more days
ORAL STEROIDS NORMAL tapering dosage.
discuss regards her home discharge medication with graphic arts technician.
Assessment / Plan
Assessment / Plan
75-year-old female with past history significant for lung cancer, hypertension, hyperlipidemia, congestive heart failure, left bundle branch block, chronic obstructive pulmonary disease, gastroesophageal reflux disease and arthritis presented with
increased shortness of breath. When she had which recommend with Management Concern for Increased Shortness of Breath, Cough from Tuesday which was productive,former smoker occasional drinker living with family presented with shortness of breath
secondary to pulmonary nodules/lung cancer/CHF:
Vitals: MD 71, temp max 98.9, pulse rate 114---71, blood pressure 109/63, O2 sat 99 with 2 L nasal cannula.
WBC 6.4---, hemoglobin 10.5--9--pending for today
Coagulation: D-dimer 1.87 high,
Chemistry: Pending
MRSA screening, COVID negative,
Sputum culture prelim reports--usual respiratory nichole
Urine culture final report--mixed nichole present probably due to contamination and requested to repeat culture if clinically relevant.
ABG: pH 7.47, pCO2 30, pO2 73, HCO3 21.8-- respiratory alkalosis with partial compensated=== with h/o copd acute respiratory alkalosis.
proBNP elevation, mild procalcitonin elevation.
On 09/04 echo impression:
1. Dilated left ventricle with severely reduced systolic function. LVEF 20-25%.
2. Severe functional mitral valve regurgitation.
3. Mild tricuspid regurgitation. PASP 42 mmHg.
4. Compared to prior echo report from 07/11/2025 at [facility], LVEF was 20% with moderate MR and PASP 55 mmHg.

# Dyspnea and orthopnea secondary to pulmonary nodules/lung cancer/CHF:
D-dimer 1.87 high, sodium 132 low, proBNP 6370,
COVID-negative, flu negative.
IV Zosyn 6 hourly stopped.
IV Decadron 4 mg 4 hourly started planning to switch to oral medication.
Sputum culture, supportive care, I/O,
Lasix 20 mg daily, continue spironolactone
Health per oral Lasix
Monitor daily weight
Started on doxycycline 100 mg 12 hourly by given the history of COPD with CT scan finding of nodular configuration, parenchymal opacity suspicious of pneumonia, procalcitonin elevation currently on day 2,
Continue the antibiotic while on the discharge and follow-up with the PCP.
EKG 09/03: QT interval 545 ms sinus tachycardia, left bundle branch block
On 09/03/2025 chest x-ray finding:
Mild bibasilar linear opacities are again seen. The cardiomediastinal silhouettes are stable. Right chest port is seen with tip in the SVC. There is no pneumothorax, significant pleural effusion or mediastinal shift.
On 09/03/25 CT chest PE study:
No CT evidence for an acute pulmonary thromboembolism.
Bilateral patchy pulmonary parenchymal opacities, some with a nodular configuration. Pulmonary nodules detailed above. Other opacities appear less nodular, greatest in the left lower lobe. Multifocal pneumonia is the primary consideration, but
underlying metastases would be difficult to exclude. Recommend follow-up imaging after treatment.
Mild linear scarring in the anterior inferior right upper lobe at the site of the patient's treated lung cancer.
Mild bilateral bronchitis, Mild centrilobular emphysema.
# Mortuary Operations Manager consulted and recommended to follow Lasix 20 mg daily home dosing, continue diuresis includes lisinopril and spironolactone. Currently carvedilol on hold for low BP, will resume as tolerated.
# Farm Machinery Erector recommended speech evaluation for the aspiration risk. And she will need in future outpatient pulmonary evaluation includes PFTs, 6-minute walking test. She does not have records at [facility]
# Lung cancer:
Completed her chemotherapy and radiation on May 2025 at [facility].
#hypertension
- continue carvedilol and lisinopril
#hyperlipidemia
- continue rosuvastatin
#hypothyroidism
- continue levothyroxine
#COPD
- continue fexofenadine and montelukast
#GERD
- continue famotidine
#depression/anxiety
- continue paroxetine and lorazepam
#arthritis
# PT, OT consult
Code status: DNR
DVT prophylaxis: Lovenox sq
Diet: Normal
Anticipated Discharge: Today
Subjective/Interval History
-
Date of Service: September 05, 2025
Overnight patient feels better comparing from yesterday.
At morning while on pre- round saw the patient after she received nebulizer and she denied shortness of breath, fever, chills, dizziness, chest pain. She is on room air.
Objective Data
-
Labs:
Laboratory Results
09/05/25
06:00
WBC Pending
Hgb Pending
Hct Pending
Plt Count Pending
Sodium Pending
Potassium Pending
Chloride Pending
Carbon Dioxide Pending
BUN Pending
Creatinine Pending
Glucose Pending
Calcium Pending
Total Bilirubin Pending
AST Pending
ALT Pending
Alkaline Phosphatase Pending
Vital Signs:
Vital Signs
Temp Pulse Resp BP Pulse Ox
97.6 F 87 16 116/59 96
09/05/25 03:00 09/05/25 03:00 09/05/25 03:00 09/05/25 03:00 09/05/25 03:00
I&O
09/04/25 09/05/25 09/06/25
06:59 06:59 06:59
Intake Total 240 / 240
Output Total 375 / 375 300 / 300
Balance -375 / -375 -60 / -60
Review of Systems
-
History Source: Patient
All other systems: Reviewed and negative
Physical Exam
-
Respiratory: Wheezes (Bilateral mild wheeze)
Cardiac: Regular Rhythm and S1/S2
GI: Soft, Nontender and Nondistended
Genito-urinary: No Costovertebral Tender
Musculoskeletal: No Clubbing and No Edema
Skin: Warm
Neuro: AO x 3
Hematologic / Lymphatic: No Lymphadenopathy
Psych: Calm
[2025-09-05] MEDS: ALDACTONE 12.5 MG PO (09:00)
[2025-09-05] MEDS: DECADRON 4 MG IV (09:00)
[2025-09-05] MEDS: LOW STRENGTH ASPIRIN 81 MG PO (09:00)
[2025-09-05] MEDS: PREMARIN 0.3 MG PO (09:00)
[2025-09-05] MEDS: VIBRAMYCIN 100 MG PO (09:00)
[2025-09-05] MEDS: PROTONIX 40 MG PO (09:00)
[2025-09-05] MEDS: PAXIL 20 MG PO (09:01)
[2025-09-05] MEDS: LASIX 20 MG PO (09:01)
[2025-09-05] MEDS: ZESTRIL 2.5 MG PO (09:05)
[2025-09-05 10:04] LABS: Hematocrit 24.5 % (37.0-47.0); Hemoglobin 8.2 g/dL (12.0-16.0); Mean Corp Hgb Conc. 33.5 g/dL (33.0-37.0); Mean Corpuscular Volume 93.2 fL (81.0-99.0); Platelet Count 252 10^3/uL (130-400); Red Cell Dist. Width 14.4 % (11.5-14.5)
[2025-09-05 10:10] LABS: ALT (SGPT) 28 U/L (0-35); AST (SGOT) 45 U/L (14-36); Albumin 3.0 g/dl (3.5-5.0); Alkaline Phosphatase 72 U/L (38-126); Blood Urea Nitrogen 17 mg/dl (7-17); Calcium 8.7 mg/dl (8.4-10.2); Carbon Dioxide 25 mmol/L (22-30); Chloride 101 mmol/L (98-107); Estimated Creatinine Clearance 56 ml/min; Glucose 191 mg/dl (70-99); Potassium 3.7 mmol/L (3.5-5.1); Sodium 132 mmol/L (135-145); Total Protein 5.7 g/dl (6.3-8.2); eGFR > 60.00
[2025-09-05 11:00] VITALS: BP 111/56
--- NOTE | 2025-09-05 12:14 | W.PN.PUL3 ---
Today's Communication / Plan
-
Diuresis per cardiology
Defer GDMT to cardiology
Recommend sodium + fluid restricted diet
Discharged home on prednisone taper, starting at 50 mg daily, reducing by 10 mg every fourth day until off
Complete course of antibiotics upon discharge with Doxy + cefdinir
Discharged home on Symbicort 80 mcg, 2 puffs twice daily
If possible, prescribed nebulizer for home use with DuoNebs (for prn usage)
Aspiration precautions
Patient being prepared for discharge home today. No additional recommendations at this time. Pulmonary service will now sign off. Outpatient office follow-up will be arranged. Please reconsult if there are any additional questions/concerns, or
if patient's respiratory status deteriorates.
Assessment
-
Patient is a 75-year-old female with previous history of lung cancer, hypertension, CHF, COPD presenting to ER for evaluation of increased shortness of breath, cough started approximately 4 days prior to admission. Patient had chest x-ray
demonstrating mild bilateral patchy opacities, confirmed on CT imaging with associated interstitial prominence and mosaicism. proBNP elevated on admission 6370, with mildly elevated procalcitonin. She is admitted for possible pneumonia and
congestive heart failure exacerbation.
Heart failure exacerbation, elevated proBNP 6370
Rule out pneumonia, Pro-Shakeel mildly elevated
Progressive shortness of breath with cough
Abnormal CT scan-w/ opacities, interstitial prominence, mosaicism
Conditions present prior to admission
Lung cancer
hypertension
hyperlipidemia
CHF
hypothyroidism
left bundle branch block
COPD/emphysema
GERD
arthritis
Hysterectomy
Whipple procedure
RCW port placement
Plan
Currently saturating 96% on room air after needing 2L yesterday; does not have history of O2 use at home
Home O2 evaluation eventually
Prior history of lung disease is noted including lung cancer, COPD/emphysema
Records not at , she follows for care elsewhere -- obtain records
Yesterday she was lethargic however she is much better today and feels much improved.
Blood gas yesterday showed respiratory alkalosis
Suspect patient has CHF exacerbation, with possible PNA r/o
CXR/CT obtained indicating opacities, interstitial prominence, mosaicism
She was placed on IV steroids, abx and lasix
FU cultures (NGTD)
Speech eval to be considered
Aspiration risk
Echo obtained yesterday showing severely reduced LVEF at 20-25% with severe functional mitral valve regurgitation with PASP elevated at 42 mmHg
Cardiology on board and recs appreciated she should follow-up with cardiology as an outpatient as well
Defer GDMT to cardiology
Will need outpatient pulmonary evaluation PFTs and 6MWT--unsure if she has established somewhere
Patient being prepared for discharge home today. Recommend to complete course of antibiotics in addition to prednisone taper starting at 50 mg, reducing by 10 mg every fourth day until off. She should be given a nebulizer machine for at home as
needed use and would discharge home on Symbicort 80 mcg, 2 puffs twice daily.
No additional recommendations at this time. Pulmonary service will now sign off. Thank you for allowing us to be involved in the care of this patient. Please reconsult if there are any additional questions/concerns, or if patient's respiratory
status deteriorates.
Diagnostic Data
Chest X-Ray: 09/03/25- Mild bibasilar linear opacities. Please see separate concurrent CTA Chest report.
CT Scan: CT Chest 09/03/25- No CT evidence for an acute pulmonary thromboembolism. Bilateral patchy pulmonary parenchymal opacities, some with a nodular configuration. Pulmonary nodules detailed above. Other opacities appear less nodular, greatest
in the left lower lobe. Multifocal pneumonia is the primary consideration, but underlying metastases would be difficult to exclude. Recommend follow-up imaging after treatment. Mild linear scarring in the anterior inferior right upper lobe at the
site of the patient's treated lung cancer. Mild bilateral bronchitis.
Mild centrilobular emphysema.
PET/CT 08/12/25- Near-complete interval resolution of previously seen neoplasm in the inferior aspect of the right upper lobe with residual minimally FDG avid small bandlike opacity in this region, likely representing post-treatment inflammatory
scarring. Recommend continued attention on follow-up exams.
Several scattered small patchy right lung opacities with minimal visualized FDG avidity (although likely below PET sensitivity), new from prior outside PET/CT 04/11/2025 and most likely represent infectious/inflammatory foci, less likely
residual/recurrent neoplasm but not entirely excluded. Recommend continued attention on follow-up exams, such as a noncontrast CT chest in 2-3 months.Echo:
PFT's:
Reports and relevant images were personally reviewed.
Total time spent today was 37 minutes for this encounter. Time includes reviewing laboratory test/imaging results, reviewing pertinent medical records, obtaining and reviewing medical history, performing an appropriate exam, ordering medications,
tests and procedures. Time also includes documentation of this encounter, coordinating patient care and communicating with other healthcare professionals. Total time does not include separately billed tests performed on this date of service.
Subjective Data
-
Date of Service:
Date of Service: September 05, 2025
Chief Complaint: Pulmonary Follow Up
Subjective:
Patient seen today at bedside. No acute events reported overnight. Afebrile. Being planned for discharge home today.
Review of Systems
General: Other (Negative unless mentioned above)
Objective Data
Data Reviewed
Vital Signs / I&O / Oxygen:
Vital Signs
Temp Pulse Resp BP Pulse Ox
97.6 F 90 16 113/65 95
09/05/25 07:00 09/05/25 11:08 09/05/25 11:08 09/05/25 07:00 09/05/25 07:15
Intake and Output
09/04/25 09/05/25 09/06/25
06:59 06:59 06:59
Intake Total 240 / 240
Output Total 375 / 375 300 / 300
Balance -375 / -375 -60 / -60
SaO2 95
Nasal Cannula flow liters per 2
minute
Physical Exam
General: Respiratory Distress (n), Comfortable and Chills (n)
HEENT: Normocephalic and Anicteric
Cardiovascular: S1-S2 and Peripheral Edema (n)
Respiratory: Wheeze (bilaterally), Crackles (n), Rhonchi (n) and Non-Labored Respirations
GI: Soft, Non Distended, Non Tender and Normal Bowel Sounds
Neurology: AO x 3 and Tremors (n)
Skin: Warm, Dry, Cyanosis (n) and Jaundice (n)
Labs/Micro/Reports
Lab Data
09/05/25 09:30
09/05/25 09:30
Laboratory Results
09/04/25
14:46
pH 7.47 H
pCO2 30 L
pO2 73 L
HCO3 21.8
O2 Delivery Level
Microbiology
09/04/25 09:11 Sputum Respiratory Culture - Preliminary
Usual Respiratory Luciana
09/04/25 09:11 Sputum Gram Stain - Preliminary
09/03/25 18:26 Nose MRSA Screen - Final
No Methicillin Resistant Staphylococcus aureus isolated.
09/03/25 13:23 Blood/Venous Blood Culture - Preliminary
No Growth in 24 hours- Final report to follow
09/03/25 13:23 Blood/Venous Blood Culture - Preliminary
No Growth in 24 hours- Final report to follow
09/03/25 16:15 Urine Urine Culture - Final
09/03/25 13:27 Nasal Swab Influenza Types A & B (MELINDA) - Final
Negative for Influenza A & B, NAAT
Negative results must be combined with clinical observations
and patient history.
Nucleic Acid Amplification test (NAAT)performed on the
[employer] platform.
[2025-09-05 12:18] LABS: Free T3 2.33 pg/ml (2.77-5.27)
[2025-09-05 12:59] VITALS: O2SAT 92
--- NOTE | 2025-09-05 13:19 | PTOTSP ---
Speech Therapy Evaluation
Pt seen for bedside swallow assessment. Pt at an elevated risk for aspiration given PMH of lung cancer with chemotherapy (completed May 2025) and GERD compounded by suspected community acquired pneumonia, congestive heart failure exacerbation,
and multifactorial acute hypoxemic respiratory insufficiency due to COPD exacerbation. With PO trials at bedside, pt had intermittent throat clearing with thin liquids. Pt with intermittent cough, which pt reports is a baseline cough (given COPD).
Cannot rule out silent aspiration at bedside.�
Recommend:�
1. IDDSI 7 regular solids and IDDSI 0 thin liquids
2. Medication as best�tolerated
3. Swallow Strategies: upright to 90 degrees, single small sips/bites, slow rate, intermittent cough swallow, upright for 30 minutes post PO, oral care 3x daily
4. ASSISTANT COMMUNITY DIRECTOR to follow briefly to ensure diet tolerance and to monitor any concerning chest imaging/respiratory status change. Can consider VSE in outpatient if there are concerns for aspiration.
[2025-09-05 13:27] VITALS: BP 111/53; BP 133/75; PULSE 121; PULSE 98; O2SAT 96
--- NOTE | 2025-09-05 13:51 | W.DCSUMMARY ---
Documented by User: Nakul Odom MD, Resident 09/05/25 15:11
Discharge Summary
Discharge Data
Date of Admission: 09/03/25
Date of Discharge: 09/05/25
-
Pending Results: No
Hospital Course
Discharging Physician : Dr Robinson Oseguera MD
Lei Bettencourt MD
Disposition : Home
Primary care physician : Dr Tato Mera
Principal Discharge diagnosis :
#Dyspnea, orthopnea secondary to pulmonary lung nodules/lung cancer/congestive heart failure
# Chronic obstructive pulmonary disease.
Chronic Discharge diagnosis :
# Congestive heart failure-continued with input and output, spironolactone, IV Lasix 20 mg daily and consulted referral nurse, ordered echo which had a normal finding when comparing with the last echo.
# Lung cancer--completed chemo, radiation on May 2025 at [facility], however she does not have any symptoms of nausea, vomiting, hemoptysis while on this admission.
# Primary hypertension continued with carvedilol. However held her lisinopril but given her cough symptoms as a side effect of this medication, and requested to follow-up with her PCP to restart while on discharge.
# Gastroesophageal reflux stenosis continued with famotidine.
# Depression managed with paroxetine, lorazepam.
# Arthritis managed with analgesics..
Hospital Course :
On 09/04 75-year-old female with a past medical history significant for lung cancer, hypertension, hyperlipidemia, congestive heart failure, left bundle branch block, chronic obstructive pulmonary disease, gastroesophageal reflux disease, arthritis
presented to [facility] ER with concern for increased shortness of breath, her son at bedside assisted her for the history obtaining. According to the son patient started to have increased shortness of breath, cough 4 days before the admission which was
productive cough however denied fever, chills, chest pain, nausea, vomiting, diarrhea, constipation at the time of admission. Basic workup includes influenza, COVID, blood culture and negative however her procalcitonin level were elevated. She was
started on Zosyn however discontinued by given her COPD started with doxycycline 100 mg twice a day. Managed chronic obstructive pulmonary disease path IV Decadron 4 mg 12 hourly, DuoNeb 4 times a day along with sputum culture and supportive care
which include pulmonary toileting and ledger clerk consulted by given the chest x-ray finding, chest CT scan with bilateral patchy pulmonary parenchymal opacities, pulmonary nodules. Cosmetic Sales Assistant consulted given her history of congestive heart
failure and they recommended to continue Lasix home dosage of 20 mg. She had a requirement of 2 L of nasal oxygen at the time of stay for a day however while on discharge she was comfortable with the room air with saturation of 98%. QT
prolongation with 545msec. Relief Man recommended to follow up in an outpt clinic within few weeks after the discharge for 6 mins walk test. Patient was stable at the time of the discharge. SHe was in Code status: DNR, DVT prophylaxis: Lovenox sq
, Diet: Normal
IMPORTANT:
If your symptoms worsen when you get home, go to the Emergency Room if you cannot reach a doctor, or call 911
Important imaging findings :
On 09/02/25 chest X ray:
Linear densities within both lungs, similar to recent PET/CT scan, and likely linear atelectasis and/or scarring.
Findings suggesting bronchitis bilaterally in the perihilar regions and within the left lower lobe.
Cardiomegaly. No convincing evidence for pulmonary edema pattern. No significant pleural effusion is evident.
On 09/03/[address] Scan PE study:
No CT evidence for an acute pulmonary thromboembolism.
Bilateral patchy pulmonary parenchymal opacities, some with a nodular configuration. Pulmonary nodules detailed above. Other opacities appear less nodular, greatest in the left lower lobe. Multifocal pneumonia is the primary consideration, but
underlying metastases would be difficult to exclude. Recommend follow-up imaging after treatment.
Mild linear scarring in the anterior inferior right upper lobe at the site of the patient's treated lung cancer.
Mild bilateral bronchitis.
Mild centrilobular emphysema.
On 09/04 echo impression:
1. Dilated left ventricle with severely reduced systolic function. LVEF 20-25%.
2. Severe functional mitral valve regurgitation.
3. Mild tricuspid regurgitation. PASP 42 mmHg.
4. Compared to prior echo report from 07/11/[address] [facility], LVEF was 20% with moderate MR and PASP 55 mmHg.
Procedure findings : none
Discharge Plan
-
Patient Disposition: Home (Routine Discharge)
Discharge Diagnosis/Procedures: Acute hypoxemic respiratory failure
COPD exacerbation
Acute on chronic HFrEF
Community-acquired pneumonia
Prolonged QTc interval
Condition: Fair
Diet: Low Cholesterol, Low Sodium and Restrict fluids to 64 oz
Activity: As tolerated
Driving Restrictions: Not until seen by your Dr
Bathing Restrictions: None
Blood Work: Follow-up with family doctor for BMP, CBC, magnesium level, phosphorus level
Others Tests: Follow-up with ledger clerk for repeat PFTs and 6-minute walk test
Other Services: VN and PT
Instructions: *PCP/Other Cosmetic Sales Assistant Heart Failure Instructions
Referrals:
Jam Raymond MD [Active, Cardiology] - in less than 1 week
Referral Note: If cardiology referral needed
Luba Garcia DO [Active, Pulmonary Medicine] - in one to two weeks
Tato Mera MD [Family Provider, [facility]]
Additional Discharge Medication Instructions: Continue cefdinir 300 mg every 12 hours and doxycycline 100 mg every 12 hours for 5 more days after discharge for pneumonia
Continue prednisone taper as directed (50 mg with decrease by 10 mg every fourth day)
Start Symbicort 2 puffs twice daily for maintenance therapy for COPD
Reduce lisinopril from 5 mg to 2.5 mg daily
Stop taking carvedilol until seen by family doctor or referral nurse
Use DuoNebs as needed for shortness of breath or wheezing
Prescriptions:
New
budesonide-formoterol [Symbicort] 80-4.5 mcg/actuation Hfa Aerosol Inhaler
2 puff inhalation R BID 30 Days Qty: 10.2 0RF
doxycycline hyclate 100 mg Capsule
100 mg PO Q12 5 Days Qty: 10 0RF
lisinopril 2.5 mg Tablet
2.5 mg PO DAILY 30 Days Qty: 30 0RF
cefdinir 300 mg capsule
300 mg PO Q12H 5 Days Qty: 10 0RF
ipratropium-albuterol 0.5 mg-3 mg(2.5 mg base)/3 mL Solution For Nebulization
3 ml inhalation R Q4HPRN PRN (Reason: shortness of breath/wheezing) Qty: 90 0RF
(DME) nebulizers [AeroEClinke XL Nebulizer] Misc
See Rx Instructions .Route Qty: 1 0RF
Rx Instructions:
As directed
(DME) nebulizer accessories Kit
See Rx Instructions .Route Qty: 1 0RF
Rx Instructions:
As directed
prednisone 10 mg tablet
See Taper PO DIRECTED Qty: 60 0RF
Taper: Prednisone DC Starting at 50 mg daily
50 mg Daily for 3 Days and 0 Hour
40 mg Daily for 3 Days and 0 Hour
30 mg Daily for 3 Days and 0 Hour
20 mg Daily for 3 Days and 0 Hour
10 mg Daily for 3 Days and 0 Hour
Rx Instructions:
50 mg daily for 3d; 40 mg daily for 3d; 30 mg daily for 3d; 20 mg daily for 3d; 10 mg daily for 3d
Continued
multivitamin Tablet
2 tab PO DAILY
famotidine 40 mg Tablet
40 mg PO HS
calcium 500 mg Tablet
1,000 mg PO DAILY
fexofenadine 180 mg Tablet
180 mg PO HS
spironolactone 25 mg Tablet
12.5 mg PO DAILY
levothyroxine 75 mcg Tablet
75 mcg PO DAILY
lorazepam 0.5 mg Tablet
0.5 mg PO HS
esomeprazole magnesium [Nexium] 40 mg Capsule,Delayed Release(Dr/Ec)
40 mg PO BID
montelukast 10 mg Tablet
10 mg PO HS
aspirin 81 mg Tablet
81 mg PO DAILY
conjugated estrogens [Premarin] 0.3 mg Tablet
0.3 mg PO DAILY
paroxetine HCl [Paxil CR] 25 mg Tablet Extended Release 24 Hr
25 mg PO DAILY
zinc Tablet,Chewable
1 tab PO HS
rosuvastatin [Crestor] 20 mg Tablet
20 mg PO HS
cholecalciferol (vitamin D3) [Vitamin D3] 50 mcg (2,000 unit) Capsule
100 mcg PO DAILY
calcium-vitamin D3-vitamin K [Viactiv] 650 mg-12.5 mcg-40 mcg Tablet,Chewable
1 tab PO DAILY
Changed
furosemide 20 mg Tablet
20 mg PO DAILY 30 Days Qty: 30 0RF
Held
carvedilol 6.25 mg Tablet
6.25 mg PO BID
Hold Instructions: Until you see your family doctor or referral nurse
Discontinued
lisinopril 5 mg Tablet
5 mg PO DAILY
Discharge Orders:
Discharge Patient (As Directed); Ordered 09/05/25
Ordered By: Nakul Odom
Discharge Date and Time
Discharge Date/Time: 09/05/25 14:34
Print Language: FINNISH

Documented by User: Hunter Oseguera DO 09/06/25 11:16
Discharge Summary
Discharge Data
Date of Admission: 09/03/25
Date of Discharge: 11/28/25
Total time spent discharging patient (in min): 33
Discharge Plan
-
Patient Disposition: Home (Routine Discharge)
Discharge Diagnosis/Procedures: Acute hypoxemic respiratory failure
COPD exacerbation
Acute on chronic HFrEF
Community-acquired pneumonia
Prolonged QTc interval
Condition: Fair
Diet: Low Cholesterol, Low Sodium and Restrict fluids to 64 oz
Activity: As tolerated
Driving Restrictions: Not until seen by your Dr
Bathing Restrictions: None
Blood Work: Follow-up with family doctor for BMP, CBC, magnesium level, phosphorus level
Others Tests: Follow-up with ledger clerk for repeat PFTs and 6-minute walk test
Other Services: VN and PT
Instructions: *PCP/Other Cosmetic Sales Assistant Heart Failure Instructions
Referrals:
Jam Raymond MD [Active, Cardiology] - in less than 1 week
Referral Note: If cardiology referral needed
Luba Garcia DO [Active, Pulmonary Medicine] - in one to two weeks
Tato Mera MD [Family Provider, Family Practice]
Additional Discharge Medication Instructions: Continue cefdinir 300 mg every 12 hours and doxycycline 100 mg every 12 hours for 5 more days after discharge for pneumonia
Continue prednisone taper as directed (50 mg with decrease by 10 mg every fourth day)
Start Symbicort 2 puffs twice daily for maintenance therapy for COPD
Reduce lisinopril from 5 mg to 2.5 mg daily
Stop taking carvedilol until seen by family doctor or referral nurse
Use DuoNebs as needed for shortness of breath or wheezing
Prescriptions:
New
budesonide-formoterol [Symbicort] 80-4.5 mcg/actuation Hfa Aerosol Inhaler
2 puff inhalation R BID 30 Days Qty: 10.2 0RF
doxycycline hyclate 100 mg Capsule
100 mg PO Q12 5 Days Qty: 10 0RF
lisinopril 2.5 mg Tablet
2.5 mg PO DAILY 30 Days Qty: 30 0RF
cefdinir 300 mg capsule
300 mg PO Q12H 5 Days Qty: 10 0RF
ipratropium-albuterol 0.5 mg-3 mg(2.5 mg base)/3 mL Solution For Nebulization
3 ml inhalation R Q4HPRN PRN (Reason: shortness of breath/wheezing) Qty: 90 0RF
(DME) nebulizers [AeroEclipse XL Nebulizer] Misc
See Rx Instructions .Route Qty: 1 0RF
Rx Instructions:
As directed
(DME) nebulizer accessories Kit
See Rx Instructions .Route Qty: 1 0RF
Rx Instructions:
As directed
prednisone 10 mg tablet
See Taper PO DIRECTED Qty: 60 0RF
Taper: Prednisone DC Starting at 50 mg daily
50 mg Daily for 3 Days and 0 Hour
40 mg Daily for 3 Days and 0 Hour
30 mg Daily for 3 Days and 0 Hour
20 mg Daily for 3 Days and 0 Hour
10 mg Daily for 3 Days and 0 Hour
Rx Instructions:
50 mg daily for 3d; 40 mg daily for 3d; 30 mg daily for 3d; 20 mg daily for 3d; 10 mg daily for 3d
Continued
multivitamin Tablet
2 tab PO DAILY
famotidine 40 mg Tablet
40 mg PO HS
calcium 500 mg Tablet
1,000 mg PO DAILY
fexofenadine 180 mg Tablet
180 mg PO HS
spironolactone 25 mg Tablet
12.5 mg PO DAILY
levothyroxine 75 mcg Tablet
75 mcg PO DAILY
lorazepam 0.5 mg Tablet
0.5 mg PO HS
esomeprazole magnesium [Nexium] 40 mg Capsule,Delayed Release(Dr/Ec)
40 mg PO BID
montelukast 10 mg Tablet
10 mg PO HS
aspirin 81 mg Tablet
81 mg PO DAILY
conjugated estrogens [Premarin] 0.3 mg Tablet
0.3 mg PO DAILY
paroxetine HCl [Paxil CR] 25 mg Tablet Extended Release 24 Hr
25 mg PO DAILY
zinc Tablet,Chewable
1 tab PO HS
rosuvastatin [Crestor] 20 mg Tablet
20 mg PO HS
cholecalciferol (vitamin D3) [Vitamin D3] 50 mcg (2,000 unit) Capsule
100 mcg PO DAILY
calcium-vitamin D3-vitamin K [Viactiv] 650 mg-12.5 mcg-40 mcg Tablet,Chewable
1 tab PO DAILY
Changed
furosemide 20 mg Tablet
20 mg PO DAILY 30 Days Qty: 30 0RF
Held
carvedilol 6.25 mg Tablet
6.25 mg PO BID
Hold Instructions: Until you see your family doctor or referral nurse
Discontinued
lisinopril 5 mg Tablet
5 mg PO DAILY
Discharge Orders:
Discharge Patient (As Directed); Ordered 09/05/25
Ordered By: Nakul Odom
Discharge Date and Time
Discharge Date/Time: 09/05/25 14:34
Print Language: FINNISH
[2025-09-05 14:34] VITALS: BP 116/60
--- NOTE | 2025-09-05 16:17 | CM ---
Alert forgetful patient who lives with her son Quynh in a 2 story home with 1 step to enter and she lives on first floor. She uses walker and wheelchair . She is assisted by family.Quynh drove her home. Quynh agreed with dc .
Offered VN he declined VN
[facility]
Pharmacy [facility]
PCP Dr Mera
PLAN Home no needs
== END 2025-09-05 14:34 | disposition home or self-care (01) | DRG 193 ==
LOC: 3 WEST ACU 18:17
PROVIDERS: Nurse Practitioner Family; ADMITTING PHYSICIAN Internal Medicine; ATTENDING PHYSICIAN Internal Medicine; EMERGENCY PHYSICIAN Emergency Medicine; FAMILY PHYSICIAN Family Medicine; OTHER PHYSICIAN Internal Medicine; OTHER PHYSICIAN Student in an Organized Health Care Education/Training Program
DX: J18.9 Pneumonia, unspecified organism (principal); I50.23 Acute on chronic systolic (congestive) heart failure; J96.01 Acute respiratory failure with hypoxia; J44.1 Chronic obstructive pulmonary disease with (acute) exacerbation; C34.11 Malignant neoplasm of upper lobe, right bronchus or lung; J44.0 Chronic obstructive pulmonary disease with (acute) lower respiratory infection; I11.0 Hypertensive heart disease with heart failure; J43.2 Centrilobular emphysema; I44.7 Left bundle-branch block, unspecified; K21.9 Gastro-esophageal reflux disease without esophagitis; F41.9 Anxiety disorder, unspecified; I34.0 Nonrheumatic mitral (valve) insufficiency; F32.A Depression, unspecified; M19.90 Unspecified osteoarthritis, unspecified site; J20.9 Acute bronchitis, unspecified; E78.00 Pure hypercholesterolemia, unspecified; E03.9 Hypothyroidism, unspecified; Z66 Do not resuscitate; Z92.21 Personal history of antineoplastic chemotherapy; Z92.3 Personal history of irradiation; Z87.891 Personal history of nicotine dependence; Z88.1 Allergy status to other antibiotic agents; Z88.8 Allergy status to other drugs, medicaments and biological substances; Z79.82 Long term (current) use of aspirin; Z79.890 Hormone replacement therapy; Z11.52 Encounter for screening for COVID-19; Z90.710 Acquired absence of both cervix and uterus; Z79.899 Other long term (current) drug therapy
CPT/HCPCS: 36600; 71046; 71275; 80048; 80053; 80061; 81003; 81015; 82805; 83605; 83880; 84145; 84439; 84443; 84481; 84484; 85025; 85027; 85379; 85610; 85730; 87040; 87070; 87086; 87205; 87502; 87811; 92610; 93005; 93306; 94640; 94669; 96365; 96366; 96367; 97163; 97167; 99285; Q9967

== ENCOUNTER 2025-09-12 23:34 | Observation (INO) | payer MEDICARE, OTHER, SELFPAY ==
[2025-09-12 18:50] VITALS: BP 101/54
[2025-09-12 19:16] VITALS: BP 97/64
--- NOTE | 2025-09-12 19:24 | ED.GENMED ---
History of Present Illness
General
Chief Complaint: Change in Mental Status
Source: patient, records and family
Exam Limitations: clinical condition
Time Seen by Provider: 09/12/25 19:15
Nursing documentation reviewed up to this point in time: agreed with
History of Present Illness
History of Present Illness:
75-year-old female with a past medical history of COPD, hypertension, hyperlipidemia, CHF, lung cancer who presents to the emergency department accompanied by her family for evaluation of confusion. Of note patient was just admitted to this
hospital 09/03 until 09/05 for pneumonia, COPD exacerbation. She was discharged on prednisone taper (currently remains on a taper), cefdinir (finished 09/10). Family reports that when she returned from the hospital her breathing had returned to her
baseline and cognition was normal. Family reports that yesterday they started to notice that she was having increased level of confusion. They report that she will have episodes where she does not respond to questions and when she does respond she
seems not to comprehend what her family is saying to her. She says that today the symptoms were rather severe all day which prompted them to bring her to the hospital. They have not noticed any focal weakness, facial drooping, slurring of the
speech. She has not had any recent falls. She has been incontinent of urine recently and family wonders if she could have a UTI as she has had confusion with these in the past. Again they report her respiratory status is at baseline she has
chronic cough from COPD but greatly improved compared to recent admission for pneumonia/COPD exacerbation. They have not noted any vomiting or diarrhea and she has had reasonable p.o. intake they report. When I asked the patient how she feels she
says 'I feel okay.' She denies being in any pain, denies feeling weak. She is clearly confused, rest of history is somewhat limited/unreliable.
Review of Systems
Review of Systems
Unable to obtain full review of systems at this time due to: other (Confused/mental status change)
All Other Systems: Not applicable
Phy Exam
Physical Exam
Physical Exam:
General: Awake, alert, confused speech
Head: Normocephalic, atraumatic
Eyes: Conjunctiva normal, EOMI, pupils equal round reactive to light bilaterally
Throat: Airway intact, handling secretions
Neck: Trachea midline, supple without meningismus
Lungs: Clear to auscultation bilaterally, no wheezing, rales, rhonchi
Heart: Regular rate and rhythm, no murmurs, gallops, or rubs
Abd: Soft, non distended, nontender to deep palpation
Neuro: Cranial nerves intact, speech fluid but without dysarthria but slow; she does follow commands, motor and sensory is intact in all extremities with good effort
Skin: No signs of trauma
Extremities: No edema in extremities, equal pulses in all extremities
Scores
Heart Failure Risk
Heart Failure Risk Score: Not Applicable
Heart Score for Chest Pain Patients
STEMI patient?: Not applicable
Withdrawal Assessment of Alcohol
Withdrawal Assessment Completed?: Not applicable
Course
Orders/Labs/Results
Orders:
Orders
09/12/25 19:23
Electrocardiogram (*1) Urgent
Reason for Study: Fatigue / Weakness
CT Head W/o Iv Contrast Urgent
Comment:
Reason For Exam: confusion
EKG- Treatment ONCE
CR Chest - 2 Views Urgent
Comment:
Reason For Exam: confused, recent tx for pneumonia
09/12/25 19:32
COVID-19 Antigen Urgent
Source: Nasal Swab
Complete Blood Count/With Diff Urgent
Comprehensive Metabolic Panel Urgent
Free T4 Urgent
Lipase Urgent
NT-proBNP Urgent
TSH Reflex To Free T4 Urgent
Influenza A+B Rapid Molecular Urgent
ROXANE Source: Nasal Swab
Specimen Description:
09/12/25 20:36
Urinalysis Reflex To Culture Urgent
Date Specimen was Collected: 09/12/25
Time Specimen was Collected: 20:00
Urine Microscopic Reflex Cult Urgent
Abnormal Lab Results
09/12/25 09/12/25
19:32 20:36
RBC 3.12 L 10^6/uL
(4.20-5.40)
Hgb 9.8 L g/dL
(12.0-16.0)
Hct 29.8 L %
(37.0-47.0)
MCH 31.4 H pg
(27.0-31.0)
MCHC 32.9 L g/dL
(33.0-37.0)
RDW 14.9 H %
(11.5-14.5)
Abs Immat Gran (auto) 0.1 H 10^3/uL
(0-0.05)
Absolute Neuts (auto) 9.5 H 10^3/uL
(1.4-6.5)
Absolute Lymphs (auto) 0.3 L 10^3/uL
(1.2-3.4)
Neutrophils % 93.3 H %
(42.2-75.2)
Lymphocytes % 3.2 L %
(20.5-51.1)
Sodium 132 L mmol/L
(135-145)
BUN 23 H mg/dl
(7-17)
Glucose 134 H mg/dl
(70-99)
ALT 40 H U/L
(0-35)
TSH (Reflex) 0.33 L uIU/ml
(0.47-4.68)
Urine Albumin (Reflex) 1+ A
(Neg - Trace)
09/12/25 19:32
09/12/25 19:32
Vital Signs
Initial and Last Documented VS:
Initial Vital Signs
Temp Pulse Resp BP Pulse Ox
36.6 C 72 18 101/54 99
09/12/25 18:50 09/12/25 18:50 09/12/25 18:50 09/12/25 18:50 09/12/25 18:50
Last Documented Vital Signs
Temp Pulse Resp BP Pulse Ox
36.6 C 62 17 107/53 95
09/12/25 18:50 09/12/25 21:45 09/12/25 21:45 09/12/25 21:00 09/12/25 21:15
MDM/Problems Addressed
Differential Diagnosis Includes:
Infection including UTI or pneumonia; CVA, brain bleed; brain mass; polypharmacy/steroid related delirium
MDM/Problems Addressed:
75-year-old female with history as noted, recent admission for pneumonia/COPD currently on steroid taper resents with waxing and waning confusion since yesterday worse today. Vitals and exam are as above. Plan to check CT head. Check labs
including CBC and a CMP. Check urinalysis, chest x-ray. Check an EKG. Reassess after the above.
Labs reviewed: CBC shows stable anemia, CMP no clinically significant abnormalities. TFTs normal. Urinalysis bland. COVID and flu negative. Chest x-ray shows resolved pneumonia. CT head no acute abnormalities. Clinical reassessment patient
appears coherent, family feels she is close to her baseline at present moment. Possible that her waxing and waning confusion/delirium is related to recent steroid course. TIA consideration but somewhat less likely. Plan to admit for observation
overnight may need to consider MRI if mental status changes continue. Discussed with hospitalist.
Chronic conditions affecting care:
COPD, CHF
*Radiology
Radiology exam reviewed: radiology read reviewed
*Pulse Oximetry
SaO2: 99
Oxygen Mode of Delivery: Room air
Patient hypoxic: no (99%)
*Critical Care Note
Total Time (30-74mins, 75-104mins- exclusive of procedures): Not Applicable
Data Reviewed
Review of Other/Old Records Reveals: Labs, Records and Discharge Summary
Source: patient and records
Patient Management
Discussion with other providers: Hospitalist (Discussed with hospitalist)
Escalation/DeEscalation of care consider admission/obs:
Admission indicated
ED Attending Note
-
Portions of this chart may have been created with voice recognition software.� Occasional wrong word or��sound alike� substitutions may have occurred due to the inherent limitations of voice recognition software.
Discharge Plan
Departure
Patient Disposition: Admit
Date of Disposition: 09/12/25
Time of Disposition: 22:22
Admit to doctor: Ervin
Presentation/result/management discussed w/ accepting MD/DO: Hospitalist
Discharge Problem:
Change in mental status
Prescriptions:
No Action
multivitamin Tablet
2 tab PO DAILY
carvedilol 6.25 mg Tablet
6.25 mg PO BID
famotidine 40 mg Tablet
40 mg PO HS
calcium 500 mg Tablet
1,000 mg PO DAILY
fexofenadine 180 mg Tablet
180 mg PO HS
spironolactone 25 mg Tablet
12.5 mg PO DAILY
levothyroxine 75 mcg Tablet
75 mcg PO DAILY
lorazepam 0.5 mg Tablet
0.5 mg PO HS
esomeprazole magnesium [Nexium] 40 mg Capsule,Delayed Release(Dr/Ec)
40 mg PO BID
montelukast 10 mg Tablet
10 mg PO HS
aspirin 81 mg Tablet
81 mg PO DAILY
conjugated estrogens [Premarin] 0.3 mg Tablet
0.3 mg PO DAILY
paroxetine HCl [Paxil CR] 25 mg Tablet Extended Release 24 Hr
25 mg PO DAILY
zinc Tablet,Chewable
1 tab PO HS
rosuvastatin [Crestor] 20 mg Tablet
20 mg PO HS
cholecalciferol (vitamin D3) [Vitamin D3] 50 mcg (2,000 unit) Capsule
100 mcg PO DAILY
calcium-vitamin D3-vitamin K [Viactiv] 650 mg-12.5 mcg-40 mcg Tablet,Chewable
1 tab PO DAILY
budesonide-formoterol [Symbicort] 80-4.5 mcg/actuation Hfa Aerosol Inhaler
2 puff inhalation R BID 30 Days Qty: 10.2 0RF
doxycycline hyclate 100 mg Capsule
100 mg PO Q12 5 Days Qty: 10 0RF
lisinopril 2.5 mg Tablet
2.5 mg PO DAILY 30 Days Qty: 30 0RF
cefdinir 300 mg capsule
300 mg PO Q12H 5 Days Qty: 10 0RF
ipratropium-albuterol 0.5 mg-3 mg(2.5 mg base)/3 mL Solution For Nebulization
3 ml inhalation R Q4HPRN PRN (Reason: shortness of breath/wheezing) Qty: 90 0RF
(DME) nebulizers [AeroEclipse XL Nebulizer] Misc
See Rx Instructions .Route Qty: 1 0RF
Rx Instructions:
As directed
(DME) nebulizer accessories Kit
See Rx Instructions .Route Qty: 1 0RF
Rx Instructions:
As directed
prednisone 10 mg tablet
See Taper PO DIRECTED Qty: 60 0RF
Taper: Prednisone DC Starting at 50 mg daily
50 mg Daily for 3 Days and 0 Hour
40 mg Daily for 3 Days and 0 Hour
30 mg Daily for 3 Days and 0 Hour
20 mg Daily for 3 Days and 0 Hour
10 mg Daily for 3 Days and 0 Hour
Rx Instructions:
50 mg daily for 3d; 40 mg daily for 3d; 30 mg daily for 3d; 20 mg daily for 3d; 10 mg daily for 3d
furosemide 20 mg Tablet
20 mg PO DAILY 30 Days Qty: 30 0RF
Referrals:
Tato Mera MD [Family Provider, Family Practice]
Interventions
Interventions:
*Risk Screen - Suicide Last Done: 09/12/25 18:50
*General Assessment Last Done: 09/12/25 18:50
*Neglect/Abuse Screening Last Done: 09/12/25 18:50
ED- Neurological Assessment Last Done: 09/12/25 21:59
ED Swallowing Screen Last Done: 09/12/25 21:59
Discharge Date and Time
Print Language: BENINESE
[2025-09-12 19:26] VITALS: BMI 24.7
[2025-09-12 19:46] LABS: Hematocrit 29.8 % (37.0-47.0); Hemoglobin 9.8 g/dL (12.0-16.0); Mean Corp Hgb Conc. 32.9 g/dL (33.0-37.0); Mean Corpuscular Volume 95.5 fL (81.0-99.0); Nucleated Red Blood Cells % 0 %; Platelet Count 255 10^3/uL (130-400); Red Cell Dist. Width 14.9 % (11.5-14.5)
[2025-09-12 20:00] LABS: COVID-19 Antigen Negative (Negative)
[2025-09-12 20:01] LABS: ALT (SGPT) 40 U/L (0-35); AST (SGOT) 30 U/L (14-36); Albumin 3.5 g/dl (3.5-5.0); Alkaline Phosphatase 76 U/L (38-126); Blood Urea Nitrogen 23 mg/dl (7-17); Calcium 9.2 mg/dl (8.4-10.2); Carbon Dioxide 28 mmol/L (22-30); Chloride 99 mmol/L (98-107); Estimated Creatinine Clearance 47 ml/min; Glucose 134 mg/dl (70-99); Lipase 56 U/L (23-300); Potassium 4.7 mmol/L (3.5-5.1); Sodium 132 mmol/L (135-145); Total Protein 6.3 g/dl (6.3-8.2); eGFR 58.39
[2025-09-12 20:02] VITALS: BP 97/61
[2025-09-12 20:42] LABS: Urine Character Clear (Clear)
[2025-09-12 20:59] LABS: Urine Red Blood Cell 0-2 /HPF (0-2); Urine White Cell 0-2 /HPF (0-5)
[2025-09-12 21:00] VITALS: BP 107/53
[2025-09-12 22:00] VITALS: BP 104/61
--- NOTE | 2025-09-12 23:10 | HPS.HSE ---
Family Physician
-
Family Physician: Tato Mera
Chief Complaint
-
confusion
History of Present Illness
75-year-old female with a past medical history of COPD, hypertension, hyperlipidemia, CHF, lung cancer who presents to the emergency department accompanied by her family for evaluation of confusion. since last night, she is confused. she was not
following her commands. she was just staring and not answering any questions. today the son was having trouble getting her up from the bed, and walking. she forgot her date of , she does not remember anything that happened since last night.
upon arrival to ER, she is back to her baseline, answering all the questions. patient denied SANCHEZ, dizzy, blurry vision, numbness,tingling or weakness. denied fever, chills. her cough is getting better. denied chest pain,sob. denied abdominal pain,
n,v,d.denied dysuria or hematuria.
Of note patient was just admitted to this hospital 09/03 until 09/05 for pneumonia, COPD exacerbation. She was discharged on prednisone taper (currently remains on a taper), cefdinir (finished 09/10).
Medical History
Past Medical History
Past Medical History: Reports Other
Additional Past Medical History:
stevenson cancer
hypertension
hyperlipidemia
CHF
hypothyroidism
left bundle branch block
COPD
GERD
arthritis
Past Surgical History: Reports Other
Additional Past Surgical History:
Hysterectomy
Whipple procedure
RCW port placement
Social History
Tobacco: Former Smoker
Alcohol: Occasional
Drug: None
Living: With Family
Family History
Family History: Not pertinent
Allergies / Home Medications
Allergies reflects when Allergies were last updated in [employer].
Home Medications with original date entered in [employer]
Allergy/Medication List:
Allergies
Allergy/AdvReac Type Severity Reaction Status Date / Time
atorvastatin (From Lipitor) Allergy Unknown Verified 09/12/25 18:50
erythromycin base Allergy Unknown Verified 09/12/25 18:50
gabapentin Allergy weakness Verified 09/12/25 18:50
ibandronate sodium (From Allergy Unknown Verified 09/12/25 18:50
Boniva)
metoclopramide (From Reglan) Allergy Rash Verified 09/12/25 18:50
Home Medications
aspirin 81 mg tablet 81 mg PO DAILY Blood Pressure 09/03/25
calcium 500 mg tablet 1,000 mg PO DAILY Supplement 09/03/25
calcium 650 mg-vitamin D3 12.5 mcg-vitamin K 40 mcg chewable tablet (Viactiv) 1 tab PO DAILY Supplement 09/03/25
carvedilol 6.25 mg tablet 6.25 mg PO BID Blood Pressure 09/03/25
Held on 09/05/25. Instructions: Until you see your family doctor or system programmer
cholecalciferol (vitamin D3) 50 mcg (2,000 unit) capsule (Vitamin D3) 100 mcg PO DAILY Supplement 09/03/25
conjugated estrogens 0.3 mg tablet (Premarin) 0.3 mg PO DAILY HORMONE 09/03/25
esomeprazole magnesium 40 mg capsule,delayed release (Nexium) 40 mg PO BID Gastrointestinal Issue 09/03/25
famotidine 40 mg tablet 40 mg PO HS Gastrointestinal Issue 09/03/25
fexofenadine 180 mg tablet 180 mg PO HS Allergies 09/03/25
levothyroxine 75 mcg tablet 75 mcg PO DAILY Thyroid 09/03/25
lorazepam 0.5 mg tablet 0.5 mg PO HS Mental Health/Anxiety 09/03/25
montelukast 10 mg tablet 10 mg PO HS Allergies 09/03/25
multivitamin 2 tab PO DAILY Supplement 09/03/25
paroxetine HCl 25 mg tablet,extended release 24 hr (Paxil CR) 25 mg PO DAILY Mental Health/Anxiety 09/03/25
rosuvastatin 20 mg tablet (Crestor) 20 mg PO HS High Cholesterol 09/03/25
spironolactone 25 mg tablet 12.5 mg PO DAILY Fluid Retention/Swelling 09/03/25
zinc 1 tab PO HS Supplement 09/03/25
budesonide-formoterol HFA 80 mcg-4.5 mcg/actuation aerosol inhaler (Symbicort) 2 puff inhalation R BID 1 month #10.2 grams 09/05/25
cefdinir 300 mg capsule 300 mg PO Q12H 5 days #10 caps 09/05/25
doxycycline hyclate 100 mg capsule 100 mg PO Q12 5 days #10 caps 09/05/25
furosemide 20 mg tablet 20 mg PO DAILY Fluid Retention/Swelling 1 month #30 tabs 09/05/25
ipratropium 0.5 mg-albuterol 3 mg (2.5 mg base)/3 mL nebulization soln 3 ml inhalation R Q4HPRN PRN shortness of breath/wheezing #90 mL 09/05/25
lisinopril 2.5 mg tablet 2.5 mg PO DAILY 1 month #30 tabs 09/05/25
nebulizer accessories #1 ea 09/05/25
nebulizers (AeroEclITelagene XL Nebulizer) #1 ea 09/05/25
prednisone 10 mg tablet See Taper PO DIRECTED #60 tabs 09/05/25
Review of Systems
-
Constitutional: Reports No Symptoms
EENT: Reports No Symptoms
Respiratory: Reports No Symptoms
Cardiac: Reports No Symptoms
Abdomen/GI: Reports No Symptoms
: Reports No Symptoms
Musculoskeletal: Reports No Symptoms
Skin: Reports No Symptoms
Neurological: Reports No Symptoms
Endocrine: Reports No Symptoms
Hematologic/Lymphatic: Reports No Symptoms
Psych: Reports No Symptoms
Physical Exam
Vital Signs
Vital Signs
Temp Pulse Resp BP Pulse Ox
97.9 F 71 19 104/61 95
09/12/25 18:50 09/12/25 22:45 09/12/25 22:45 09/12/25 22:00 09/12/25 21:15
Physical Exam
General: Well Developed, Well Nourished and No Apparent Distress
HEENT: NormoCephalic, Moist mucous membranes and Atraumatic
Respiratory: Clear
Cardiac: S1/S2 and Regular Rhythm; No Murmur or Rub
GI: Soft, Non Tender, Non Distended and Normal Bowel Sounds; No Organomegaly
Rectal: Deferred by Provider
Musculoskeletal: No Clubbing, No Cyanosis and No Edema
Skin: No Rash
Neuro: AO x 3 and Nonfocal/grossly intact
Psych: Calm
Laboratory Results
-
09/12/25 19:32
09/12/25 19:32
Laboratory Results
Total Bilirubin 0.2 mg/dl (0.2-1.3) 09/12/25 19:32
AST 30 U/L (14-36) 09/12/25 19:32
ALT 40 U/L (0-35) H 09/12/25 19:32
Alkaline Phosphatase 76 U/L (38-126) 09/12/25 19:32
Lipase 56 U/L (23-300) 09/12/25 19:32
Data Reviewed
-
Diagnostic Radiology: Report Reviewed by me
Lab Data: Labs Reviewed by me
Impression/Plan
-
#confusion likely from steroids
- CT head negative
- UA negative
- Chest x-ray with impression Stable mild cardiomegaly. Slight prominence of bronchovascular markings without significant vascular congestion. No evidence to suggest congestive heart failure. No pleural effusion or pneumothorax. No focal
interstitial or airspace opacity to indicate pneumonia.
-CTm
-consider MRI, if no improvement in confusion.
#recent pneumonia
#recent COPD exacerbation
-abx finished
-will continue prednisone taper dose
#CHF
-strict I&O,daily weight
-Lasix continued
# Anemia of chronic disease
- Hemoglobin stable at 9.8, no active bleeding next-continue to monitor
# Lung cancer:
-Completed her chemotherapy and radiation on May 2025 at [facility].
#hypertension
- continue carvedilol
#hyperlipidemia
- continue rosuvastatin
#hypothyroidism
- continue levothyroxine
#COPD
- continue fexofenadine and montelukast
#GERD
- continue famotidine
#depression/anxiety
- continue paroxetine and lorazepam
# PT, OT consult
Code status: Full code
DVT prophylaxis: Lovenox sq
--- NOTE | 2025-09-12 23:54 | W.PN.UPDATE ---
Update Note
Progress Note Update
Patient seen in conjunction with the nurse practitioner. I agree with the findings on history and physical and I concur with assessment and plan unless otherwise stated.
Briefly, this is a 75-year-old female with past medical history significant for CHF, COPD on home O2, hypothyroid, anxiety, hypertension and hyperlipidemia who presents to the emergency department with episode of confusion.
Patient was recently admitted to the hospital with multifactorial illness including COPD exacerbation, pneumonia and CHF exacerbation. She was treated with antibiotics and is currently on a prednisone taper after finishing a course of antibiotics.
According to family members she appeared confused starting last night. Family reported that she appeared to be 15 and her staring into the distance and would not respond to her voice commands. They were called into to get her to bed and she will
not move. When I asked her to walk she will not know they have to actually assist her to get bed. The same event happened this morning. They wanted to get her into the shower to get ready for an appointment that she had later this afternoon but
patient will not follow any commands. She would not even voice any of her preferences. She had no other focal deficits. They reported that later on during the day she seems to be coming out of this episode and was able to walk again and was
responding briefly and by the time she arrived in the emergency department she was almost back to her baseline. She is currently alert and oriented x 3 on arrival in the emergency department. She does have a history of lung cancer status post
chemotherapy which she finished a few weeks ago and she also finished XRT. She is pending treatment for with immunotherapy.
In the emergency department she was afebrile, blood pressure 104/60 with a pulse of 59 and she was satting 97%. ECG shows sinus bradycardia with a rate of 59 and some T wave inversions in leads V4 through 6.
UA was negative, COVID test was negative, flu test was negative.
CBC shows a white count 10.1 otherwise hemogram platelets were similar to prior and unremarkable. Electrolytes BUN and creatinine were in the normal range except for a sodium of 132 which is the same as prior.
CT of the head showed no acute intracranial process. Chest x-ray shows stable mild cardiomegaly, no focal interstitial airspace opacity to indicate a pneumonia. No evidence to suggest congestive heart failure at this time.
Assessment and plan
75-year-old with history of lung cancer status post chemo and radiation, COPD, hypertension, hypothyroid presenting to the emergency department again for episode of altered mental status typified by inability to follow commands at home and some
weakness. She was recently admitted with CHF, COPD and pneumonia status post antibiotics and currently on a prednisone taper. Here in the emergency department she is alert and oriented and follows commands. She has a normal CT of the head and her
chest x-ray is clear. Chest x-ray was also clear when she was diagnosed with pneumonia but she a CT finding did show patchy multifocal opacities. Unlikely. With delirium but cannot rule out encephalopathy secondary to steroids or recent
antibiotics versus nonepileptic seizure episode versus acute stroke or TIA. Less likely an acute stroke given no focal deficits at this time.
Confusion -episode of confusion and not following commands. She shows no focal logical deficits. No evidence of metastatic disease on the CT scan, no evidence of acute stroke, no evidence of a UTI despite recent hospitalization. She is afebrile
and on baseline oxygen saturation. No signs of an acute pneumonia on x-ray. She has no leukocytosis. Labs were otherwise unremarkable. She is currently alert and oriented x 3. No clear etiology or for acute confusion as she is not on any
offending medications. Possibly had some delirium which may be associated with prednisone
- Admit to Tele observation for now
- Check orthostatic vital signs to remove dehydration from consideration
-Check MRI given non-small cell lung cancer and possibility of seizure, also helps to rule out small CVA
- TSH is within the normal range
- PT evaluation
Recent pneumonia and COPD exacerbation -completed course of antibiotics
� No acute exacerbation, continue prednisone taper
� Continue nebs
CHF
- Hemodynamically stable and does appear euvolemic, continue Lasix 20 mg daily
� Continue spironolactone
DVT prophylaxis�Lovenox
CODE STATUS�full code
[2025-09-13] VITALS (8 sets, daily range): BP systolic 105–118; BP diastolic 47–80; PULSE 63–78; O2SAT 97; BMI 24.7
[2025-09-13] MEDS: DELTASONE 30 MG PO (01:56)
--- NOTE | 2025-09-13 04:35 | PTCARENOTE ---
Pt arrived from ED via stretcher and was pulled over to bed. Admission questions originally completed in ED. Initial assessment was completed upon arrival to unit. Pt AOx1. Bed alarm in place. Heel foams applied. Bed in lowest position and call cisneros
within reach.
[2025-09-13 05:50] LABS: Hematocrit 27.6 % (37.0-47.0); Hemoglobin 9.1 g/dL (12.0-16.0); Mean Corp Hgb Conc. 33.0 g/dL (33.0-37.0); Mean Corpuscular Volume 94.8 fL (81.0-99.0); Platelet Count 244 10^3/uL (130-400); Red Cell Dist. Width 14.7 % (11.5-14.5)
[2025-09-13] MEDS: SYNTHROID 75 MCG PO (06:01)
[2025-09-13 06:17] LABS: Blood Urea Nitrogen 21 mg/dl (7-17); Calcium 9.1 mg/dl (8.4-10.2); Carbon Dioxide 28 mmol/L (22-30); Chloride 102 mmol/L (98-107); Estimated Creatinine Clearance 58 ml/min; Glucose 126 mg/dl (70-99); Potassium 4.4 mmol/L (3.5-5.1); Sodium 130 mmol/L (135-145); eGFR > 60.00
[2025-09-13] MEDS: SYMBICORT 80/4.5 MCG INHALER 2 PUFF INH (07:15)
[2025-09-13] MEDS: CLARITIN 10 MG PO (08:39)
[2025-09-13] MEDS: PROTONIX 40 MG PO (08:39)
[2025-09-13] MEDS: LOW STRENGTH ASPIRIN 81 MG PO (08:39)
[2025-09-13] MEDS: ALDACTONE 12.5 MG PO (08:39)
[2025-09-13] MEDS: PAXIL 20 MG PO (08:39)
[2025-09-13] MEDS: LASIX 20 MG PO (08:39)
--- NOTE | 2025-09-13 11:24 | PTOTSP ---
Occupational Therapy
Pt seen for Occupational Therapy evaluation/session, delirium screening completed, RN and MD notified of results.
*4AT score: 6 (possible delirium)
Scorin or above: possible delirium +/- cognitive impairment
1-3: possible cognitive impairment
0: delirium or cognitive impairment unlikely (but delirium still possible if [4] information incomplete)
Interventions initiated include: orientation to environment/situation, Early mobility (OOB to chair), ADL task (LB dressing).
*Mini COG: score 0/5 (indicating cognitive impairment), poor clock test 0/2
--- NOTE | 2025-09-13 11:50 | CM ---
Addendum entered by Chris Whitlock 09/13/25 14:59:
Spoke w/ son, Tato, regarding discharge and therapy concerns/recommendations. Per Tato, patient stated though he works during the day, he is able to work from his home as he has an office at home. Tato stated patient was recently at [facility] and discharged in July, not interested in SNF. Patient was recently receiving home PT/OT which she has completed and graduated to OP PT which she was suppose to begin yesterday. Tato would like for patient to begin and continue w/
OP PT.
Tato interested in caregiver support for when patient is alone sometimes, CM provided [facility] and [employer] info
Tato interested in information for palliative care, CM provided info
Plan: Home w/ son, no needs
Original Note:
Patient seen bedside, initial assessment completed. Patient is a 75-year-old female with a past medical history of COPD, hypertension, hyperlipidemia, CHF, lung cancer who presents to the emergency department accompanied by her family for evaluation
of confusion.
Patient resides w/ son in a single story home, no steps. Independent w/ RW, assisted w/ showers by her daughter. Has additional shower chair in the bathroom. Denies SNF/HC hx.
Address, points of contact and insurance verified
PCP: Tato Mera
Pharmacy: [facility]
Patient admitted under obs services. SOUZA verbally reviewed, copy provided, copy on chart
Discussed d/c recommendations w/ therapy. Concerns of patient's cognition and delirium. Per therapy, though patient lives w/ her son, he works during the day and patient is home alone. Current recommendation is home w/ assistance vs SNF.
Plan: Home vs SNF
--- NOTE | 2025-09-13 13:27 | W.PN.HOSP.TC ---
Today's Communication/Plan
-
MRI brain pending
Assessment / Plan
Assessment / Plan
75F w/ NSCLC s/p chemo/radiation, COPD, HTN, hypothyroid p/w inability to follow commands at home and some weakness.
Acute encephalopathy
episode of confusion and not following commands.
No evidence of metastatic disease on the CT scan, no evidence of acute stroke
UA not C/W UTI
MRI brain pending R/o CVA or mets
TSH WNL
Recent pneumonia and COPD exacerbation
- completed course of antibiotics
� No acute exacerbation, continue prednisone taper
� Continue nebs
CHF
- Hemodynamically stable and does appear euvolemic, continue Lasix 20 mg daily
� Continue spironolactone
DVT prophylaxis�Lovenox
CODE STATUS�full code
Anticipated Discharge: Within 24 hours
Subjective/Interval History
-
Date of Service: September 13, 2025
Patient with some confusion, but denied any acute pain or other issues. Attempted to call son for updates, no answer, will attempt again.
Objective Data
-
Labs:
Laboratory Results
09/13/25
05:30
WBC 8.3
Hgb 9.1 L
Hct 27.6 L
Plt Count 244
Sodium 130 L
Potassium 4.4
Chloride 102
Carbon Dioxide 28
BUN 21 H
Creatinine 0.8
Glucose 126 H
Calcium 9.1
Vital Signs:
Vital Signs
Temp Pulse Resp BP Pulse Ox
97.4 F 76 16 118/69 98
09/13/25 12:00 09/13/25 12:00 09/13/25 12:00 09/13/25 12:00 09/13/25 12:00
Review of Systems
-
Unable to obtain full review of systems at this time due to: Dementia
History Source: Patient
Physical Exam
-
General: No Apparent Distress
HEENT: Moist Mucous Membranes, Anicteric and PERRLA
Respiratory: Clear to Auscultation; Negative Wheezes, Rales or Rhonchi
Cardiac: Regular Rhythm and S1/S2; Negative Murmur, Rub or Gallop
GI: Soft, Nontender, Nondistended and Normal Bowel Sounds
Musculoskeletal: No Edema
Skin: Warm and Dry; Negative Rash, Ulcers or Lesions
Neuro: Awake and AO x 3
Hematologic / Lymphatic: No Lymphadenopathy
Psych: Calm and Apparent Dementia
Data Reviewed
-
Diagnostic Radiology: Report Reviewed by me
CT Scan: Report Reviewed by me
Labs: Labs Reviewed by me
--- NOTE | 2025-09-13 15:51 | W.DCSUMMARY ---
Discharge Summary
Discharge Data
Date of Admission: 09/12/25
Date of Discharge: 09/13/25
Total time spent discharging patient (in min): 31
-
Pending Results: No
Hospital Course
Attending physician on day of discharge:
Jessica Cordero MD
Discharge diagnosis:
Acute encephalopathy
Secondary diagnoses:
Dementia
Non-small cell lung cancer
COPD
HTN
Hypothyroidism
Consultations:
None
Procedures:
None
Hospital course:
75F w/ NSCLC s/p chemo/radiation, COPD, HTN, hypothyroid p/w inability to follow commands at home and some weakness. Extensive workup was unrevealing for etiology, including UA, CMP, CBC, TSH, flu/COVID, CXR, CTh, MRI brain, EKG. Patient returned
to her baseline mental status. She was seen by PT who recommended home with supervision versus SNF, family opted to take patient back home.
Diagnostic Findings:
MRI brain:FINDINGS:
Diffusion imaging shows no hyperacute, acute, or early subacute infarction.
Scattered and confluent T2/FLAIR hyperintensities within the subcortical and periventricular white matter of the bilateral cerebral hemispheres as well as the brittney which are nonspecific, however likely sequelae of moderate/severe small vessel
ischemic disease. This is overall similar to prior. Moderate parenchymal volume loss. Prior lacunar infarction within the right thalamus. Likely prominent perivascular spaces within the basal ganglia.
There is no mass or mass effect, or extra-axial fluid collection.
There is prominence of the ventricular system which is likely due to adjacent central volume loss and similar in appearance to prior.
Flow voids of the larger intracranial vessels are present.
Paranasal sinuses and mastoid air cells are predominantly clear. Trace right mastoid effusion.
Marrow signal pattern is within normal limits. Bilateral lens replacement.
IMPRESSION:
No acute intracranial abnormality noted.
Moderate atrophy with sequelae of moderate/severe chronic small vessel ischemic disease, similar to prior.
Physical exam on discharge:
See note
Discharge disposition:
Home
Discharge Plan
-
Patient Disposition: Home (Routine Discharge)
Discharge Diagnosis/Procedures: Acute encephalopathy
Diet: Regular
Activity: As tolerated
Referrals:
Tato Mera MD [Family Provider, [facility]] - in less than 1 week
Prescriptions:
Continued
multivitamin Tablet
2 tab PO DAILY
famotidine 40 mg Tablet
40 mg PO HS
calcium 500 mg Tablet
1,000 mg PO DAILY
fexofenadine 180 mg Tablet
180 mg PO HS
spironolactone 25 mg Tablet
12.5 mg PO DAILY
levothyroxine 75 mcg Tablet
75 mcg PO DAILY
lorazepam 0.5 mg Tablet
0.5 mg PO HS
esomeprazole magnesium [Nexium] 40 mg Capsule,Delayed Release(Dr/Ec)
40 mg PO BID
montelukast 10 mg Tablet
10 mg PO HS
aspirin 81 mg Tablet
81 mg PO DAILY
conjugated estrogens [Premarin] 0.3 mg Tablet
0.3 mg PO DAILY
paroxetine HCl [Paxil CR] 25 mg Tablet Extended Release 24 Hr
25 mg PO DAILY
zinc Tablet,Chewable
1 tab PO HS
rosuvastatin [Crestor] 20 mg Tablet
20 mg PO HS
cholecalciferol (vitamin D3) [Vitamin D3] 50 mcg (2,000 unit) Capsule
100 mcg PO DAILY
calcium-vitamin D3-vitamin K [Viactiv] 650 mg-12.5 mcg-40 mcg Tablet,Chewable
1 tab PO DAILY
budesonide-formoterol [Symbicort] 80-4.5 mcg/actuation Hfa Aerosol Inhaler
2 puff inhalation R BID 30 Days Qty: 10.2 0RF
ipratropium-albuterol 0.5 mg-3 mg(2.5 mg base)/3 mL Solution For Nebulization
3 ml inhalation R Q4HPRN PRN (Reason: shortness of breath/wheezing) Qty: 90 0RF
(DME) nebulizers [AeroEclipse XL Nebulizer] Misc
See Rx Instructions .Route Qty: 1 0RF
Rx Instructions:
As directed
(DME) nebulizer accessories Kit
See Rx Instructions .Route Qty: 1 0RF
Rx Instructions:
As directed
prednisone 10 mg tablet
See Taper PO DIRECTED Qty: 60 0RF
Taper: Prednisone DC Starting at 50 mg daily
50 mg Daily for 3 Days and 0 Hour
40 mg Daily for 3 Days and 0 Hour
30 mg Daily for 3 Days and 0 Hour
20 mg Daily for 3 Days and 0 Hour
10 mg Daily for 3 Days and 0 Hour
Rx Instructions:
50 mg daily for 3d; 40 mg daily for 3d; 30 mg daily for 3d; 20 mg daily for 3d; 10 mg daily for 3d
furosemide 20 mg Tablet
20 mg PO DAILY 30 Days Qty: 30 0RF
Discharge Orders:
Discharge Patient (As Directed); Ordered 09/13/25
Ordered By: Jessica Cordero
Discharge Date and Time
Discharge Date/Time: 09/13/25 15:35
Print Language: [place]
== END 2025-09-13 15:35 | disposition home or self-care (01) ==
LOC: 2 NORTH 23:34
PROVIDERS: Registered Nurse; ADMITTING PHYSICIAN Internal Medicine; ATTENDING PHYSICIAN Internal Medicine; EMERGENCY PHYSICIAN Emergency Medicine; FAMILY PHYSICIAN Family Medicine
DX: G93.40 Encephalopathy, unspecified (principal); F03.94 Unspecified dementia, unspecified severity, with anxiety; F03.93 Unspecified dementia, unspecified severity, with mood disturbance; C34.90 Malignant neoplasm of unspecified part of unspecified bronchus or lung; J44.9 Chronic obstructive pulmonary disease, unspecified; I11.0 Hypertensive heart disease with heart failure; E03.9 Hypothyroidism, unspecified; E78.5 Hyperlipidemia, unspecified; R32 Unspecified urinary incontinence; R05.3 Chronic cough; R53.1 Weakness; R53.83 Other fatigue; I67.82 Cerebral ischemia; G31.9 Degenerative disease of nervous system, unspecified; R00.1 Bradycardia, unspecified; I44.7 Left bundle-branch block, unspecified; K21.9 Gastro-esophageal reflux disease without esophagitis; M19.90 Unspecified osteoarthritis, unspecified site; D63.8 Anemia in other chronic diseases classified elsewhere; F32.A Depression, unspecified; I50.9 Heart failure, unspecified; Z92.21 Personal history of antineoplastic chemotherapy; Z92.3 Personal history of irradiation; Z79.82 Long term (current) use of aspirin; Z90.710 Acquired absence of both cervix and uterus; Z87.01 Personal history of pneumonia (recurrent); Z87.440 Personal history of urinary (tract) infections; Z90.49 Acquired absence of other specified parts of digestive tract; Z87.891 Personal history of nicotine dependence; Z88.1 Allergy status to other antibiotic agents; Z88.8 Allergy status to other drugs, medicaments and biological substances; Z79.899 Other long term (current) drug therapy; Z79.818 Long term (current) use of other agents affecting estrogen receptors and estrogen levels; Z79.51 Long term (current) use of inhaled steroids; Z79.52 Long term (current) use of systemic steroids; Z99.81 Dependence on supplemental oxygen; Z90.411 Acquired partial absence of pancreas; Z86.73 Personal history of transient ischemic attack (TIA), and cerebral infarction without residual deficits; Z11.52 Encounter for screening for COVID-19
CPT/HCPCS: 70450; 70551; 71046; 80048; 80053; 81003; 81015; 83690; 83880; 84439; 84443; 85025; 85027; 87502; 87811; 93005; 94640; 97162; 97167; 99285; G0378

== ENCOUNTER → 2025-09-23 11:39 | Outpatient (REF) | payer MEDICARE, OTHER, SELFPAY | LOC: HWRAD 11:39 | PROVIDERS: ATTENDING PHYSICIAN Radiology Radiation Oncology; FAMILY PHYSICIAN Family Medicine | DX: C34.11 Malignant neoplasm of upper lobe, right bronchus or lung (principal) | CPT/HCPCS: 71250 ==